=== PATIENT | male | born 1950 | race Caucasian/White ===

== ENCOUNTER → 2018-03-11 11:20 | Outpatient (CLI) | payer MEDICARE, SELFPAY | PROVIDERS: PCP Internal Medicine; Visit Provider Urology | DX: C61 Malignant neoplasm of prostate (principal) | CPT/HCPCS: 36415; 84153 ==

== ENCOUNTER → 2018-04-19 07:31 | Outpatient (CLI) | payer MEDICARE, SELFPAY ==
[2018-04-19 08:51] LABS: Add Manual Diff / Slide Review NO; Eosinophils Percent Auto 6.8 % (2-4); Hematocrit 41.4 % (41-53); Lymphocytes Percent Auto 29.4 % (25-40); Mean Corpuscular HGB Conc 33.9 % (30-36); Mean Corpuscular Hemoglobin 32.4 PG (26-34); Mean Corpuscular Volume 95.5 fL (80-100); Monocytes Percent Auto 11.4 % (3-14); Neutrophils Absolute Auto 2200 /uL (3000-5900); Neutrophils Percent Auto 51.4 % (50-75); Platelet Count 264 X10^3/uL (150-400); Red Blood Cell Count 4.33 X10^6/uL (4.5-5.9); Red Cell Distribution Width 13.7 % (11.6-14.8); White Blood Cell Count 4.3 X10^3/uL (4.5-11.0)
[2018-04-19 09:23] LABS: Alanine Aminotransferase 33 IU/L (21-72); Albumin 4.2 g/dL (3.5-5.0); Albumin Globulin Ratio 1.6 (1.0-2.8); Alkaline Phosphatase 58 U/L (38-126); Aspartate Aminotransferase 29 IU/L (17-59); Bilirubin Total 1.5 mg/dL (0.2-1.3); Blood Urea Nitrogen 18 mg/dL (9-20); Calcium 9.3 mg/dL (8.4-10.2); Carbon Dioxide 29 mmol/L (22-32); Chloride 100 mmol/L (98-107); Cholesterol 165 mg/dL (140-199); Estimated Glomerular Filt Rate > 60.0 mL/min (>60); Globulin 2.7 g/dL (1.7-4.1); Glucose 103 mg/dL (80-110); HDL Cholesterol 56 mg/dL (40-60); HEMOLYSIS < 15 (0-50); LDL Cholesterol Calculated 91 mg/dL (<100); Potassium 4.2 mmol/L (3.4-5.1); Sodium 138 mmol/L (137-145); Total Protein 6.9 g/dL (6.3-8.2); Triglycerides 90 mg/dL (35-150)
[2018-04-19 11:04] LABS: Thyroid Stimulating Hormone 2.66 uIU/mL (0.47-4.68)
== END ==
PROVIDERS: PCP Internal Medicine; Visit Provider Internal Medicine
DX: I10 Essential (primary) hypertension (principal); E78.5 Hyperlipidemia, unspecified; Z87.898 Personal history of other specified conditions; Z00.00 Encounter for general adult medical examination without abnormal findings
CPT/HCPCS: 36415; 80053; 80061; 84443; 85025

== ENCOUNTER → 2018-07-26 07:55 | Outpatient (CLI) | payer MEDICARE, SELFPAY | PROVIDERS: Family Provider Internal Medicine; PCP Internal Medicine; Visit Provider Urology | DX: C61 Malignant neoplasm of prostate (principal) | CPT/HCPCS: 36415; 84153 ==

== ENCOUNTER 2018-10-27 12:52 | Day surgery (SDC) | payer MEDICARE, SELFPAY ==
[2018-10-27 13:55] VITALS: BP 133/88; PULSE 67; RESP 16; TEMP 36.2; O2SAT 97; BMI 22.3
[2018-10-27] MEDS: SODIUM CHLORIDE 0.9% 1,000 ML 200 ML IV (14:03)
--- NOTE | 2018-10-27 14:23 | P.HP_ITS ---
History of Present Illness Date Patient Seen: 10/27/18 Time Patient Seen: 14:20 Chief complaint: 23049 SCREENING COLONOSCOPY Narrative: 67-year-old male who presents for colorectal screening. His last examination was approximately 7 years ago. Patient notes no specific findings at that time. On further history today he denies any new gastrointestinal symptoms. No nausea, vomiting, loss of appetite, unexplained weight loss, abdominal pain, change in bowel habits, diarrhea, constipation, melena, hematochezia, or bright red blood per rectum. Patient History Medical History BPH (benign prostatic hyperplasia) (Acute) Chronic back pain (Acute) Depression (Acute) Elevated PSA (Acute) Fracture of phalanx of left index finger (Acute) Glaucoma (Acute) HTN (hypertension) (Acute) Hearing loss (Acute) Hyperlipidemia (Acute) Prostate cancer (Acute) Spinal stenosis (Acute) Tinnitus (Acute) Spondylolisthesis (Chronic) Chicken pox (Resolved) Measles (Resolved) Surgical History History of colonoscopy (Acute) H/O left inguinal hernia repair (Acute) Family History Father History of carotid endarterectomy Stroke Mother Heart disease Hypertension High cholesterol Sister Age: 60 Borderline personality disorder Grandmother Diabetes mellitus Social History household members: spouse Smoking Status: Never smoker alcohol intake: current Family & Social History Family History Father History of carotid endarterectomy Stroke Mother Heart disease Hypertension High cholesterol Sister Age: 60 Borderline personality disorder Grandmother Diabetes mellitus Social History: household members spouse Tobacco & Substance use: Smoking Status Never smoker alcohol intake current alcohol intake frequency a few times a week Substance Use Type marijuana Meds Home Medications Medication Instructions Recorded Confirmed Type dorzolamide 1 drp OPHTH BID #1 bot 04/27/17 Rx naproxen sodium [Aleve] 220 mg PO BIDCC #0 04/27/17 10/27/18 History timolol maleate [Timoptic] 1 drp OPHTH BID #1 bot 10/11/17 10/27/18 Rx latanoprost 1 drp OPHTH HS #1 bot 03/11/18 10/27/18 Rx atorvastatin 10 mg tablet 10 mg PO HS #90 tab 04/26/18 10/27/18 Rx bupropion HCl SR 150 mg tablet,12 150 mg PO BID #180 tab 04/26/18 10/27/18 Rx hr sustained-release lisinopril 5 mg tablet 2.5 mg PO DAILY #45 tab 04/26/18 10/27/18 Rx nortriptyline 10 mg capsule 10 mg PO HS #90 cap 04/26/18 10/27/18 Rx tamsulosin 0.4 mg capsule 0.8 mg PO QDAY cap 04/26/18 10/27/18 History Allergies Allergy/AdvReac Type Severity Reaction Status Date / Time No Known Drug Allergies Allergy Verified 10/26/18 15:34 Review of Systems Review of Systems All systems reviewed & are unremarkable except as noted in HPI and below Exam Vital Signs (past 8 hours): - 10/27/18 13:55 Temperature 97.1 F L Pulse Rate 67 Respiratory Rate 16 Blood Pressure 133/88 Pulse Oximetry 97 Oxygen Delivery Method Room Air Narrative Exam Narrative: Well-nourished well-developed male in no acute distress. Alert oriented x3. is at the bedside for my entire visit. Sclera nonicteric Regular rate and rhythm Abdomen soft, nondistended, nontender, no masses Extremities show no clubbing or cyanosis. 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 Colonoscopy is once again recommended. Technical details of the procedure were discussed. Risks, benefits, alternatives were explained. Risks including but not limited to sedation, aspiration, bleeding, pain, missed lesion, incomplete examination, need for further radiographic studies, colonic perforation, need for major ab dominal surgery, and all attendant risks of major surgery were discussed in detail. All questions were answered to his satisfaction, and he voiced understanding. Consent was placed on the chart. We will proceed as above.
--- NOTE | 2018-10-27 14:23 | PM.PREOP ---
Pre-operative Note Interval Note History & Physical reviewed/Exam performed by Physician: Yes Changes to H&P: No H&P completed within 30 days and has changed as indicated here:: Patient seen and examined today. History and physical examination documented and placed on the chart. Obviously, there have been no changes in the last 10 min. Proceed with colonoscopy today as planned. ASA Class (for procedural sedation): II
[2018-10-27] MEDS: MIDAZOLAM 5 MG/5 ML VIAL IV (14:36)
[2018-10-27] MEDS: fentaNYL 250 MCG/5 ML INJ IV (14:37)
--- NOTE | 2018-10-27 14:44 | PM.OP.ENDO ---
Operative Date/Time/Diagnoses Date of procedure: 10/27/18 Time of procedure: 14:44 Pre-op diagnosis: Colorectal screening Post-op diagnosis: other (Diverticulosis but otherwise normal colon and rectum) Procedure & Clinicians Study performed: 1. Sedation per surgeon 2. Colonoscopy Same procedure as scheduled: Yes Indications: 67-year-old male who presents for colorectal screening. His last examination was 7 years ago. Colonoscopy is once again recommended. Surgeon: Po Churchill Procedure Notes SCOAP/Timeout: Yes Procedure in detail: After obtaining informed consent, the patient was brought to the GI suite and placed in the left lateral decubitus position on the examination table. After placement of appropriate monitors, the patient was given incremental doses of Versed and Fentanyl until an appropriate level of sedation was achieved. A time out was held per SCOAP protocol. A digital rectal examination was performed and did not reveal any masses or obstructing lesions. The colonoscope was gently passed into the patient's anus and the entire colon navigated to the level of the cecum with minimal difficulty. Terminal ileum was intubated and noted to be grossly normal. Once in the cecum, the scope was withdrawn being sure to go before and beyond all mucosal folds and prominences and get an excellent examination. The findings are noted above. At the level of the rectal vault, the scope was retroflexed and the internal anal canal was examined. The scope was straightened and air aspirated from the colon. The instrument was removed from the patient's body and the procedure was concluded. The patient was allowed to awaken from sedation without difficulty and taken to the post-anesthesia care unit in good condition. Scope withdrawal time: 8:09 min Sedation minutes: 17 Findings: diverticulosis and other findings (Otherwise normal colon and rectum) Specimen(s): none sent Complications: none Recommendations: Colonscopy in 10 years and High fiber diet Plan for aftercare: 1. Discharge home Follow up: as needed Disposition: PACU
[2018-10-27 14:54] VITALS: BP 124/75; PULSE 75; RESP 15; TEMP 36.1; O2SAT 98
== END 2018-10-27 15:07 | disposition home or self-care (01) ==
PROVIDERS: Family Provider Internal Medicine; PCP Internal Medicine; Visit Provider Surgery
PROC: 0DJD8ZZ Inspection of Lower Intestinal Tract, Via Natural or Artificial Opening Endoscopic (ICD-10-PCS; CPT 45378; principal; 2018-10-27 15:00)
DX: Z12.11 Encounter for screening for malignant neoplasm of colon (principal); K57.30 Diverticulosis of large intestine without perforation or abscess without bleeding; I10 Essential (primary) hypertension; E78.5 Hyperlipidemia, unspecified
CPT/HCPCS: G0121; 99152; J2250; J3010

== ENCOUNTER → 2019-01-04 15:16 | Outpatient (CLI) | payer MEDICARE, SELFPAY ==
[2019-01-04 17:49] LABS: Prostate Specific Antigen 8.85 ng/mL (0.10-4.00)
== END ==
PROVIDERS: Family Provider Internal Medicine; PCP Internal Medicine; Visit Provider Urology
DX: C61 Malignant neoplasm of prostate (principal)
CPT/HCPCS: 36415; 84153

== ENCOUNTER → 2019-01-05 11:15 | Outpatient (CLI) | payer MEDICARE, SELFPAY | PROVIDERS: Family Provider Internal Medicine; PCP Internal Medicine; Visit Provider Urology | DX: C61 Malignant neoplasm of prostate (principal) ==

== ENCOUNTER 2019-02-25 03:12 | Emergency (ER) | payer MEDICARE, SELFPAY ==
[2019-02-25 03:20] VITALS: BMI 24.3
[2019-02-25 03:24] VITALS: BP 130/95; PULSE 52; RESP 14; TEMP 36.5; O2SAT 99
--- NOTE | 2019-02-25 03:53 | DI.CT.S_ITS ---
PROCEDURE: CT KIDNEY URETER BLADDER (KUB) INDICATIONS: Painless hematuria TECHNIQUE: Noncontrast 5 mm thick sections acquired from the diaphragms to the symphysis. 5 mm thick coronal and sagittal reformats were then performed. For radiation dose reduction, the following was used: automated exposure control, adjustment of mA and/or kV according to patient size. COMPARISON: None. FINDINGS: Image quality: Excellent. Lung bases: Mild bibasilar atelectasis versus scarring. Heart size is normal. Urinary system: Both kidneys are normal in size. 30 mm diameter right interpolar renal cyst. No kidney stones. No hydronephrosis or perinephric fat stranding. Both ureters appear non-dilated throughout their expected courses. Urinary bladder is decompressed. Other solid organs: Liver is normal in size. Gallbladder is within normal limits. Pancreas is normal in contours. Spleen is normal in size. No adrenal nodules. Prostate is enlarged. Peritoneum and bowel: Unenhanced bowel loops demonstrate normal wall thickness and caliber. Diverticulosis of the descending and sigmoid colon. No free fluid or air. Normal appendix. Nodes and vessels: No retroperitoneal or mesenteric adenopathy by size criteria. Aorta and inferior vena cava are normal in caliber. Abdominal wall: No ventral hernias. Pelvis: No free pelvic fluid. No inguinal hernias or adenopathy. Bones: No suspicious bony lesions. No vertebral body compression fractures. IMPRESSION: 1. No evidence of urinary tract calcification, nor obstruction. 2. Normal appendix. 3. Prostate enlargement. Recommend correlation with PSA values. 4. Concordant with preliminary interpretation. Dictated by: Man Garcia M.D. on 02/25/2019 at 7:08 Approved by: Man Garcia M.D. on 02/25/2019 at 7:12
[2019-02-25] MEDS: SODIUM CHLORIDE 0.9% 1,000 ML 1000 ML IV (03:56)
[2019-02-25 04:12] LABS: Add Manual Diff / Slide Review NO; Basophils Absolute Auto 100 /uL (0-100); Basophils Percent Auto 1.4 % (0-2); Eosinophils Absolute Auto 300 /uL (0-450); Eosinophils Percent Auto 7.3 % (2-4); Hematocrit 42.6 % (41-53); Hemoglobin 14.2 g/dL (13.5-17.5); Lymphocytes Absolute Auto 1200 /uL (1100-4500); Lymphocytes Percent Auto 26.4 % (25-40); Mean Corpuscular HGB Conc 33.4 % (30-36); Mean Corpuscular Hemoglobin 32.4 PG (26-34); Monocytes Absolute Auto 500 /uL (0-900); Monocytes Percent Auto 10.5 % (3-14); Neutrophils Absolute Auto 2500 /uL (1500-7000); Neutrophils Percent Auto 54.4 % (50-75); Platelet Count 250 X10^3/uL (150-400); Red Blood Cell Count 4.39 X10^6/uL (4.5-5.9); Red Cell Distribution Width 13.4 % (11.6-14.8); White Blood Cell Count 4.6 X10^3/uL (4.5-11.0)
[2019-02-25 04:22] LABS: Prothrombin Time 11.4 SECONDS (10.1-12.7)
[2019-02-25 04:25] LABS: PTT Partial Thromboplastin Tim 33 SECONDS (26.4-36.2)
[2019-02-25 04:26] LABS: Blood Urea Nitrogen 22 mg/dL (9-20); Calcium 9.3 mg/dL (8.4-10.2); Carbon Dioxide 29 mmol/L (22-32); Chloride 104 mmol/L (98-107); Estimated Glomerular Filt Rate > 60.0 mL/min (>60); Glucose 103 mg/dL (80-110); HEMOLYSIS < 15 (0-50); Potassium 4.4 mmol/L (3.4-5.1); Sodium 140 mmol/L (137-145)
[2019-02-25 04:57] LABS: Prostate Specific Antigen 5.38 ng/mL (0.10-4.00)
[2019-02-25 05:11] VITALS: BP 128/78; PULSE 60; RESP 18; O2SAT 99
--- NOTE | 2019-02-25 05:44 | ED.MALEGU ---
HPI - Male Genitourinary General Chief complaint: Urogenital-Male Stated complaint: PEEING A LOT OF BLOOD SINCE YESTERDAY AFTERNOON Time Seen by Provider: 02/25/19 03:38 Source: patient Mode of arrival: ambulatory Limitations: no limitations History of Present Illness HPI Narrative: The patient developed hematuria yesterday. He passed a small clot. He has had ongoing hematuria today, again passing a clot. He is still able urinate. He has no abdominal pain. He has no back pain. The patient has no history of kidney stones, he does have a history of prostate cancer initially diagnosed 10 years ago. He is currently under surveillance by his urologist, having multiple PSAs per your checked. He is due for prostate biopsy next month. He is not having fever, chills, or pain with the hematuria. He is not on blood thinners. He has no bleeding disorders. He has had no trauma. Related Data Home Medications Medication Instructions Recorded Confirmed naproxen sodium [Aleve] 220 mg PO BIDCC #0 04/27/17 10/27/18 tamsulosin 0.4 mg capsule 0.8 mg PO QDAY cap 04/26/18 10/27/18 Previous Rx's Medication Instructions Recorded dorzolamide 1 drp OPHTH BID #1 bot 04/27/17 timolol maleate [Timoptic] 1 drp OPHTH BID #1 bot 10/11/17 latanoprost 1 drp OPHTH HS #1 bot 03/11/18 atorvastatin 10 mg tablet 10 mg PO HS #90 tab 04/26/18 bupropion HCl SR 150 mg tablet,12 150 mg PO BID #180 tab 04/26/18 hr sustained-release lisinopril 5 mg tablet 2.5 mg PO DAILY #45 tab 04/26/18 nortriptyline 10 mg capsule 10 mg PO HS #90 cap 04/26/18 Allergies Allergy/AdvReac Type Severity Reaction Status Date / Time No Known Drug Allergies Allergy Verified 10/26/18 15:34 Review of Systems Review of Systems ROS Unobtainable: All systems reviewed & are unremarkable except as noted in HPI and below Constitutional Denies chills and Denies fever(s) Comments: No recent illness. Gastrointestinal Gastrointestinal: Denies abdominal pain, Denies change in bowel habits, Denies diarrhea, Denies nausea and Denies vomiting Genitourinary Reports hematuria, Denies genital lesions, Denies genital pain, Denies dysuria and Denies flank pain Musculoskeletal Denies back pain Integumentary/Breasts Denies rash COUNTS INCLUDE 234 BEDS AT THE [facility] Medical History BPH (benign prostatic hyperplasia) (Acute) Chronic back pain (Acute) Depression (Acute) Elevated PSA (Acute) Fracture of phalanx of left index finger (Acute) Glaucoma (Acute) HTN (hypertension) (Acute) Hearing loss (Acute) Hyperlipidemia (Acute) Prostate cancer (Acute) Spinal stenosis (Acute) Tinnitus (Acute) Spondylolisthesis (Chronic) Chicken pox (Resolved) Measles (Resolved) Surgical History H/O left inguinal hernia repair (Acute) History of colonoscopy (Acute) Family History Father History of carotid endarterectomy Stroke Mother Heart disease Hypertension High cholesterol Sister Age: 60 Borderline personality disorder Grandmother Diabetes mellitus Social History household members: spouse Smoking Status: Never smoker alcohol intake: current Family History Father History of carotid endarterectomy Stroke Mother Heart disease Hypertension High cholesterol Sister Age: 60 Borderline personality disorder Grandmother Diabetes mellitus Social History household members: spouse Smoking Status: Never smoker alcohol intake: current Exam Initial Vital Signs Initial Vital Signs: Vital Signs Temperature 97.7 F 02/25/19 03:24 Pulse Rate 52 L 02/25/19 03:24 Respiratory Rate 14 02/25/19 03:24 Blood Pressure 130/95 H 02/25/19 03:24 Pulse Oximetry 99 02/25/19 03:24 Const General: cooperative and well developed Nutritional Appearance: well nourished Orientation: alert, awake and oriented x3 Resp Effort & Inspection: normal respiratory effort, able to speak in complete sentences, no respiratory distress and no use of accessory muscles Auscultation: clear to auscultation bilaterally, no rales, no rhonchi and no wheezes Cardio Rate: regular rate Rhythm: regular rhythm Heart Sounds: no click, no gallops, no murmurs and no rubs Pulses: normal peripheral pulses GI Inspection: non-distended Palpation: soft, no hepatosplenomegaly, No guarding, No pulsatile mass and No tender Auscultation: normal bowel sounds Other: Normal phallus. Blood at the meatus of the penis. Scrotum/testicles are normal. Back/Spine/Pelvis Back: No CVA tenderness Neuro General: alert, oriented x3, gait normal and no focal motor deficits Speech: speech normal Course Course Narrative: The patient has been asymptomatic with stable vitals since arrival. He was given IV fluids, he is able urinate. No the labs and CT results were discussed with the patient. Best options are to drink plenty of fluids and stay well hydrated, and to contact his urologist on Wednesday to discuss the hematuria and a follow-up plan Orders Ordered: ED Orders 02/25/19 03:45 Urine Microscopic Stat 02/25/19 03:53 CT kidney ureter bladder (KUB) Stat 02/25/19 04:00 Basic Metabolic Panel Stat Complete Blood Count AUTO DIFF Stat Partial Thromboplastin Time Stat Prostate Specific Antigen Stat Prothrombin Time INR Stat Discontinued Medications Sodium Chloride (Normal Saline 0.9%) 1,000 mls @ 1,000 mls/hr IV BOLUS ONE Stop: 02/25/19 04:51 Last Infusion: 02/25/19 04:56 Dose: 0 mls/hr Admin: 02/25/19 03:56 Dose: 1,000 mls/hr Vital Signs - 8 hr 02/25/19 03:24 02/25/19 05:11 Temperature 97.7 F Pulse Rate 52 L 60 Respiratory Rate 14 18 Blood Pressure [Left Arm] 130/95 H 128/78 Pulse Oximetry 99 99 MDM - Male Genitourinary Lab Data Result diagrams: 02/25/19 04:00 02/25/19 04:00 Lab Results 02/25/19 02/25/19 02/25/19 Range/Units 03:45 04:00 04:00 WBC 4.6 (4.5-11.0) X10^3/uL RBC 4.39 L (4.5-5.9) X10^6/uL Hgb 14.2 (13.5-17.5) g/dL Hct 42.6 (41-53) % MCV 97.0 (80-100) fL MCH 32.4 (26-34) PG MCHC 33.4 (30-36) % RDW 13.4 (11.6-14.8) % Plt Count 250 (150-400) X10^3/uL Neut % (Auto) 54.4 (50-75) % Lymph % (Auto) 26.4 (25-40) % Haines % (Auto) 10.5 (3-14) % Eos % (Auto) 7.3 H (2-4) % Baso % (Auto) 1.4 (0-2) % Neut # (Auto) 2500 (7009-9373) /uL Lymph # (Auto) 1200 (8867-1651) /uL Haines # (Auto) 500 (0-900) /uL Eos # (Auto) 300 (0-450) /uL Baso # (Auto) 100 (0-100) /uL PT 11.4 (10.1-12.7) SECONDS INR 1.0 (0.9-1.3) APTT 33 (26.4-36.2) SECONDS Sodium (137-145) mmol/L Potassium (3.4-5.1) mmol/L Chloride (98-107) mmol/L Carbon Dioxide (22-32) mmol/L BUN (9-20) mg/dL Creatinine (0.66-1.25) mg/dL Estimated GFR (>60) mL/min BUN/Creatinine Ratio (6-22) Glucose (80-110) mg/dL Calcium (8.4-10.2) mg/dL Prostate Specific Ag (0.10-4.00) ng/mL Urine RBC >100/hpf (0-5/HPF) Urine WBC None seen (0-5/HPF) Ur Squamous Epith Cells None seen (0-5/HPF) Urine Bacteria None seen (None) Ur Culture Indicated? Cult not indicated 02/25/19 Range/Units 04:00 WBC (4.5-11.0) X10^3/uL RBC (4.5-5.9) X10^6/uL Hgb (13.5-17.5) g/dL Hct (41-53) % MCV (80-100) fL MCH (26-34) PG MCHC (30-36) % RDW (11.6-14.8) % Plt Count (150-400) X10^3/uL Neut % (Auto) (50-75) % Lymph % (Auto) (25-40) % Haines % (Auto) (3-14) % Eos % (Auto) (2-4) % Baso % (Auto) (0-2) % Neut # (Auto) (5633-2358) /uL Lymph # (Auto) (8468-1405) /uL Haines # (Auto) (0-900) /uL Eos # (Auto) (0-450) /uL Baso # (Auto) (0-100) /uL PT (10.1-12.7) SECONDS INR (0.9-1.3) APTT (26.4-36.2) SECONDS Sodium 140 (137-145) mmol/L Potassium 4.4 (3.4-5.1) mmol/L Chloride 104 (98-107) mmol/L Carbon Dioxide 29 (22-32) mmol/L BUN 22 H (9-20) mg/dL Creatinine 1.00 (0.66-1.25) mg/dL Estimated GFR > 60.0 (>60) mL/min BUN/Creatinine Ratio 22.0 (6-22) Glucose 103 (80-110) mg/dL Calcium 9.3 (8.4-10.2) mg/dL Prostate Specific Ag 5.38 H D (0.10-4.00) ng/mL Urine RBC (0-5/HPF) Urine WBC (0-5/HPF) Ur Squamous Epith Cells (0-5/HPF) Urine Bacteria (None) Ur Culture Indicated? Imaging Data CT scan - abdomen: Radiologist's impression: Right renal cyst. No urolithiasis. Prostate hypertrophy. Discharge Plan Departure Patient Disposition: Home Clinical Impression: Hypertrophy of prostate, Cyst of right kidney Hematuria Qualifiers: Hematuria type: gross Qualified Code(s): R31.0 - Gross hematuria Activity Restrictions/Additional Instructions: Drink plenty of fluids, stay well hydrated. Tried to be sure and urinate frequently. Return to this ER a local ER if you have problems passing urine. Contact your urologist Wednesday to arrange follow-up. Prescriptions: No Action naproxen sodium [Aleve] 220 MG tablet 220 mg PO BIDCC Qty: 0 RF: 0 dorzolamide 2 % drops 1 drp OPHTH BID Qty: 1 RF: 3 timolol maleate [Timoptic] 0.25 % drops 1 drp OPHTH BID Qty: 1 RF: 3 latanoprost 0.005 % drops 1 drp OPHTH HS Qty: 1 RF: 3 tamsulosin [Flomax] 0.4 mg capsule 0.8 mg PO QDAY RF: 0 lisinopril 5 mg tablet 2.5 mg PO DAILY Qty: 45 RF: 3 atorvastatin [Lipitor] 10 mg tablet 10 mg PO HS Qty: 90 RF: 3 bupropion HCl [Wellbutrin SR] 150 mg tablet extended release 12 hr 150 mg PO BID Qty: 180 RF: 3 nortriptyline 10 mg capsule 10 mg PO HS Qty: 90 RF: 3 Referrals: Abigail Greenberg ARNP [Primary Care Provider] -
[2019-02-25 06:04] LABS: Bacteria Urine None Seen; WBC Urine None Seen (0-5/HPF)
[2019-02-25 06:14] LABS: Culture Indicated Urine Cult Not Indicated; RBC Urine >100/HPF (0-5/HPF); Squamous Epithelial Cell Urine None Seen (0-5/HPF)
== END 2019-02-25 06:25 | disposition home or self-care (01) ==
PROVIDERS: Emergency Provider Emergency Medicine; PCP Internal Medicine
DX: N40.0 Benign prostatic hyperplasia without lower urinary tract symptoms (principal); N28.1 Cyst of kidney, acquired; R31.0 Gross hematuria
CPT/HCPCS: 36591; 74176; 80048; 81015; 84153; 85025; 85610; 85730; 96360; 99283; 99284

== ENCOUNTER → 2019-03-01 12:30 | Outpatient (CLI) | payer MEDICARE, SELFPAY ==
--- NOTE | 2019-03-01 | DI.CT.S_ITS ---
PROCEDURE: CT ABDOMEN PELVIS WO/W CON INDICATIONS: GROSS HEMATURIA TECHNIQUE: After the administration of intravenous contrast, 5 mm thick images acquired from the diaphragm to the symphysis pubis after a 10-minute delay. 2 mm thick coronal and sagittal reformats were then performed of the kidneys and ureters. For radiation dose reduction, the following was used: automated exposure control, adjustment of mA and/or kV according to patient size. COMPARISON: [facility], CT, CT KIDNEY URETER BLADDER (KUB), 02/25/2019, 3:59. FINDINGS: Image quality: Excellent. Lung bases: 5 mm subpleural left lower lobe ovoid lung nodule. Heart size is normal. Urinary system: No perinephric fat stranding. There is normal bilateral renal enhancement. Multiple small cortical and a large right upper pole corticomedullary cyst measuring 3.4 cm present. No filling defects within the collecting systems. Renal calyces appear normal in morphology when filled with contrast. Opacified portions of both ureters demonstrate normal caliber. Bladder wall thickness is normal. Other solid organs: Liver is normal in size and enhancement. Gallbladder appears normal. Biliary system is non dilated. Pancreas enhances normally. Spleen is normal in size and enhancement. No adrenal nodules. Peritoneum and bowel: Bowel loops demonstrate normal wall thickness and caliber. No free fluid or air. Sigmoid diverticula are present. Nodes and vessels: No retroperitoneal or mesenteric adenopathy by size criteria. Aorta and inferior vena cava are normal in size. Abdominal wall: No ventral hernias. Pelvis: No pathologic free pelvic fluid. No inguinal hernias or adenopathy. The prostate gland is significantly enlarged and measures 6.6 x 5.0 x 5.7 cm. Seminal vesicles appear normal. No pelvic adenopathy. The urinary bladder wall is minimally thickened, likely secondary to partial distention. Bones: No suspicious bony lesions. No vertebral body compression fractures. IMPRESSION: 1. Significant prostatomegaly. 2. No evidence of filling defect or mass within the urinary collecting system. 3. Bilateral renal cysts. No solid renal mass. Dictated by: Christa Tabares M.D. on 03/01/2019 at 17:58 Approved by: Christa Tabares M.D. on 03/01/2019 at 18:06
== END ==
PROVIDERS: PCP Internal Medicine; Visit Provider Urology
DX: R31.0 Gross hematuria (principal); N40.0 Benign prostatic hyperplasia without lower urinary tract symptoms; N28.1 Cyst of kidney, acquired
CPT/HCPCS: 74177; Q9967

== ENCOUNTER 2019-07-17 09:55 | Outpatient (CLI) | payer MEDICARE, SELFPAY ==
[2019-07-17 12:44] LABS: Prostate Specific Antigen 5.55 ng/mL (0.10-4.00)
== END 2019-09-01 11:53 | disposition home or self-care (01) ==
LOC: LAB 09:58
PROVIDERS: Family Provider Internal Medicine; PCP Internal Medicine; Visit Provider Urology
DX: C61 Malignant neoplasm of prostate (principal)
CPT/HCPCS: 36415; 84153

== ENCOUNTER 2019-08-02 08:15 | Outpatient (RCR) | payer MEDICARE, SELFPAY ==
--- NOTE | 2019-07-26 16:20 | PT.OIE ---
Current Diagnoses Cervicalgia (07/26/19) Past Medical History (Last Reviewed 02/25/19 @ 06:08 by Darryn Tariq MD) BPH (benign prostatic hyperplasia) (Acute) Chicken pox (Resolved) Chronic back pain (Acute) Depression (Acute) Elevated PSA (Acute) Fracture of phalanx of left index finger (Acute) Glaucoma (Acute) Hearing loss (Acute) HTN (hypertension) (Acute) Hyperlipidemia (Acute) Measles (Resolved) Prostate cancer (Acute) Spinal stenosis (Acute) Spondylolisthesis (Chronic) Tinnitus (Acute) Past Surgical History (Last Reviewed 02/25/19 @ 06:08 by Darryn Tariq MD) H/O left inguinal hernia repair (Acute) History of colonoscopy (Acute) Visit Care Team Role Provider Type TRACY Cruz Attending Provider Advanced Professor Criminal Justice Family Provider Primary Care Provider Specialty: Family Practice Address: [address] [place] [address], [facility] Email: [email or web address] Physical Therapy Initial Evaluation PT-OP-A Visit Information Start: 07/26/19 13:44 Freq: Status: Active Protocol: Document 07/26/19 14:30 AMB (Rec: 07/26/19 16:10 AMB [email or web address]) Out-Patient Physical Therapy Visit Information Visit Information Visit Type Initial Evaluation Visit Start Time 14:30 Visit Stop Time 15:15 Total Visit Minutes 45 Visit Number 1 PT-OP-B Current Condition Start: 07/26/19 13:44 Freq: Status: Active Protocol: Document 07/26/19 14:30 AMB (Rec: 07/26/19 16:10 AMB [email or web address]) Current Condition History of Current Condition Onset Date 1 month ago Current Complaints neck pain History of Current Condition Pt reports increased neck pain after a 9 hour flight to [place]. He does have a history of cervical herniated disc per his report in 2007. Currently sleeping and turning the head increase his pain. Which is currently between 2/ 10 and 4/10. Denies radiating pain into the arms, but does have right sided neck and upper trap pain. Prior Functional Status Baseline Function- ADL's Independent Baseline Function- Mobility Independent Current Functional Impairments (Reported) Functional Limitations- ADL's difficulty sleeping and driving due to pain Personal Factors Other Personal Factors That May Effect Back pain with Therapy/Recovery spondylolisthesis (pt unsure what level or degree) PT-OP-C Subjective Start: 07/26/19 13:44 Freq: Status: Active Protocol: Document 07/26/19 14:30 AMB (Rec: 07/26/19 16:10 AMB [email or web address]) Patient Questionnaires Neck Disability Index NDI Score 7/50=14% Neck Disability Index Impairment 1 to 19% Impaired (Score 1-9) PT-OP-J Posture/Palpation/Skin Start: 07/26/19 13:44 Freq: Status: Active Protocol: Document 07/26/19 14:30 AMB (Rec: 07/26/19 16:10 AMB [email or web address]) Posture Evaluation Comments Posture Comments Medial border of scapula wings mildly bilaterally. Mild forward head. Palpation Assessment Location One Palpation Location cervical spine and upper thoracic Palpation Findings Muscle Guarding,Tenderness Palpation Details Tightness in R levator scapula . No pain with PAs through c- spine, but stiffness present. PT-OP-K Range of Motion Start: 07/26/19 13:44 Freq: Status: Active Protocol: Document 07/26/19 14:30 AMB (Rec: 07/26/19 16:10 AMB [email or web address]) Cervical Spine Range of Motion Cervical Spine Active Degrees Testing Position Sitting Flexion 50 Extension 45 Rotation Left 72 Rotation Right 60 Lateral Flexion Left 25 Lateral Flexion Right 38 ROM Limitations Pain Comments left sidebending, right rotation, and extension PT-OP-L Special Tests Start: 07/26/19 13:44 Freq: Status: Active Protocol: Document 07/26/19 14:30 AMB (Rec: 07/26/19 16:10 AMB [email or web address]) Special Tests Cervical Spine Special Tests Alar Ligament Test Results negative Traction Test Results positive for pain relief Spurling's Test Test Results negative PT-OP-Q Treatments Start: 07/26/19 13:44 Freq: Status: Active Protocol: Document 07/26/19 14:30 AMB (Rec: 07/26/19 16:10 AMB [email or web address]) Manual Therapy Treatment Soft Tissue Mobilization 1 Body Location R UT, levator scap, sub occipitals Mobilization Type Myofascial Release,Sustained Pressure Intensity/Depth Moderate Body Position Hooklying Manual Traction Cervical Body Position Hooklying Reps/Duration 5 min PT-OP-R Modalities Start: 07/26/19 13:44 Freq: Status: Active Protocol: Document 07/26/19 14:30 AMB (Rec: 07/26/19 16:10 AMB [email or web address]) Electric Stimulation Electric Stimulation Interferential Current (IFC) Body Location cervical/upper tspine Duration (Minutes) 10 PT-OP-T Assessment and Plan Start: 07/26/19 13:44 Freq: Status: Active Protocol: Document 07/26/19 14:30 AMB (Rec: 07/26/19 16:10 AMB [email or web address]) Physical Therapy Assessment Rehab Potential Rehabilitation Potential Good Evaluation Complexity Number of Personal Factors/Comorbidities 1-2 Number of Body Systems Impaired 4 or More Clinical Presentation at Evaluation Stable Impairments Impairments Functional Activities,Pain, Posture,ROM Goals Two Impairment sleeping Short Term Goal (STG) Kayode will wake from sleeping in the morning with 2/10 neck pain or less. STG Duration 4 weeks One Impairment ROM Short Term Goal (STG) Kayode will increase his cervical rotation AROM to bilaterally 75 degrees. STG Duration 4 weeks Wearing Apparel Shaker Goal (LTG) Kayode will improve his cervical extension to 55 degrees without pain. LTG Duration 8 weeks Assessment Summary Assessment Pt reports increased neck pain s/p long flight with continued pain especially with sleeping and turning the head . He does have a history of herniated disc, but currently denies pain or numbness tingling radiating down into his arms. He does show postural changes described above and have pain with extension, right rotation and left sidebending. He will benefit from PT to improve the above impairments and improve his ability to sleep without neck pain. Physical Therapy Plan Frequency and Duration Frequency of Treatment 2x/Week Duration of Treatment 8 weeks Plan of Care Start Date 07/26/19 Plan of Care End Date 09/20/19 Therapeutic Interventions Therapeutic Interventions Home Exercise Program,Joint Mobilizations,Manual Therapy, Neuromuscular Re-education, Soft Tissue Mobilization, Therapeutic Activities, Therapeutic Exercises Modalities Electric Stimulation,Hot Packs ,Traction- Mechanical, Ultrasound Next Visit Focus/Plan Next Note Type Treatment Note Next Visit Plan Instruct pt in self stretching and chin tuck HEP, can try e- stim, traction, and manual therapy to improve ROM.
--- NOTE | 2019-07-26 16:25 | PT.OPPOC ---
Current Diagnoses Cervicalgia (07/26/19) Visit Care Team Role Provider Type TRACY Cruz Attending Provider Advanced Cardiothoracic Anesthesia Technician Family Provider Primary Care Provider Specialty: Family Practice Address: [address] [place] [address], [facility], [place], [address] Email: [email or web address] Plan Of Care PT-OP-T Assessment and Plan Start: 07/26/19 13:44 Freq: Status: Active Protocol: Document 07/26/19 14:30 AMB (Rec: 07/26/19 16:10 AMB [email or web address]) Physical Therapy Assessment Rehab Potential Rehabilitation Potential Good Evaluation Complexity Number of Personal Factors/Comorbidities 1-2 Number of Body Systems Impaired 4 or More Clinical Presentation at Evaluation Stable Impairments Impairments Functional Activities,Pain, Posture,ROM Goals Two Impairment sleeping Short Term Goal (STG) Kayode will wake from sleeping in the morning with 2/10 neck pain or less. STG Duration 4 weeks One Impairment ROM Short Term Goal (STG) Kayode will increase his cervical rotation AROM to bilaterally 75 degrees. STG Duration 4 weeks Manager Occupational Goal (LTG) Kayode will improve his cervical extension to 55 degrees without pain. LTG Duration 8 weeks Assessment Summary Assessment Pt reports increased neck pain s/p long flight with continued pain especially with sleeping and turning the head . He does have a history of herniated disc, but currently denies pain or numbness tingling radiating down into his arms. He does show postural changes described above and have pain with extension, right rotation and left sidebending. He will benefit from PT to improve the above impairments and improve his ability to sleep without neck pain. Physical Therapy Plan Frequency and Duration Frequency of Treatment 2x/Week Duration of Treatment 8 weeks Plan of Care Start Date 07/26/19 Plan of Care End Date 09/20/19 Therapeutic Interventions Therapeutic Interventions Home Exercise Program,Joint Mobilizations,Manual Therapy, Neuromuscular Re-education, Soft Tissue Mobilization, Therapeutic Activities, Therapeutic Exercises Modalities Electric Stimulation,Hot Packs ,Traction- Mechanical, Ultrasound Next Visit Focus/Plan Next Note Type Treatment Note Next Visit Plan Instruct pt in self stretching and chin tuck HEP, can try e- stim, traction, and manual therapy to improve ROM. Plan of Care Dates Plan of Care Start Date 07/26/19 Plan of Care End Date 09/20/19
--- NOTE | 2019-07-27 16:03 | PT.OTN ---
Current Diagnoses Cervicalgia (07/27/19) Physical Therapy Treatment Note PT-OP-A Visit Information Start: 07/26/19 13:44 Freq: Status: Active Protocol: Document 07/27/19 13:45 AMB (Rec: 07/27/19 13:52 AMB [email or web address]) Out-Patient Physical Therapy Visit Information Visit Information Visit Type Treatment Note Visit Start Time 13:45 Visit Stop Time 14:30 Total Visit Minutes 45 Visit Number 2 PT-OP-B Current Condition Start: 07/26/19 13:44 Freq: Status: Active Protocol: Document 07/26/19 14:30 AMB (Rec: 07/26/19 16:10 AMB [email or web address]) Current Condition History of Current Condition Onset Date 1 month ago Current Complaints neck pain History of Current Condition Pt reports increased neck pain after a 9 hour flight to [place]. He does have a history of cervical herniated disc per his report in 2007. Currently sleeping and turning the head increase his pain. Which is currently between 2/ 10 and 4/10. Denies radiating pain into the arms, but does have right sided neck and upper trap pain. Prior Functional Status Baseline Function- ADL's Independent Baseline Function- Mobility Independent Current Functional Impairments (Reported) Functional Limitations- ADL's difficulty sleeping and driving due to pain Personal Factors Other Personal Factors That May Effect Back pain with Therapy/Recovery spondylolisthesis (pt unsure what level or degree) PT-OP-C Subjective Start: 07/26/19 13:44 Freq: Status: Active Protocol: Document 07/27/19 13:45 AMB (Rec: 07/27/19 13:52 AMB [id number]) OP-PT Subjective Patient Comments Patient Comments Pt reports he woke up pretty stiff, mostly on the left today. PT-OP-J Posture/Palpation/Skin Start: 07/26/19 13:44 Freq: Status: Active Protocol: Document 07/26/19 14:30 AMB (Rec: 07/26/19 16:10 AMB [email or web address]) Posture Evaluation Comments Posture Comments Medial border of scapula wings mildly bilaterally. Mild forward head. Palpation Assessment Location One Palpation Location cervical spine and upper thoracic Palpation Findings Muscle Guarding,Tenderness Palpation Details Tightness in R levator scapula . No pain with PAs through c- spine, but stiffness present. PT-OP-K Range of Motion Start: 07/26/19 13:44 Freq: Status: Active Protocol: Document 07/26/19 14:30 AMB (Rec: 07/26/19 16:10 AMB [email or web address]) Cervical Spine Range of Motion Cervical Spine Active Degrees Testing Position Sitting Flexion 50 Extension 45 Rotation Left 72 Rotation Right 60 Lateral Flexion Left 25 Lateral Flexion Right 38 ROM Limitations Pain Comments left sidebending, right rotation, and extension PT-OP-L Special Tests Start: 07/26/19 13:44 Freq: Status: Active Protocol: Document 07/26/19 14:30 AMB (Rec: 07/26/19 16:10 AMB [email or web address]) Special Tests Cervical Spine Special Tests Alar Ligament Test Results negative Traction Test Results positive for pain relief Spurling's Test Test Results negative PT-OP-Q Treatments Start: 07/26/19 13:44 Freq: Status: Active Protocol: Document 07/27/19 13:45 AMB (Rec: 07/27/19 15:58 AMB [email or web address]) Therapeutic Exercises Supine Exercises 1 Supine Exercise Name chin tuck Sitting Exercises 2 Sitting Exercise Name levator scap stretch Reps/Minutes 30x2 1 Sitting Exercise Name isometrics- cervical rotation Reps/Minutes 5x5 Manual Therapy Treatment Soft Tissue Mobilization 1 Body Location R UT, levator scap, sub occipitals Mobilization Type Myofascial Release,Sustained Pressure Intensity/Depth Moderate Body Position Hooklying Joint Mobilizations 1 Joint C3-7 Direction UPA Grade III Body Position Hooklying Manual Traction Cervical Body Position Hooklying Reps/Duration 5 min PT-OP-R Modalities Start: 07/26/19 13:44 Freq: Status: Active Protocol: Document 07/27/19 13:45 AMB (Rec: 07/27/19 15:59 AMB [email or web address]) Electric Stimulation Electric Stimulation Interferential Current (IFC) Body Location cervical/upper tspine Duration (Minutes) 10 Combined With Heat/Cold Hot Pack PT-OP-T Assessment and Plan Start: 07/26/19 13:44 Freq: Status: Active Protocol: Document 07/27/19 13:45 AMB (Rec: 07/27/19 15:58 AMB [email or web address]) Physical Therapy Assessment Assessment Summary Assessment Pt with more left sided neck pain at C4-C5 today. Reports intermittent sharp pain. Not reproduced while he was in PT. Physical Therapy Plan Next Visit Focus/Plan Next Note Type Treatment Note Next Visit Plan Reassess HEP, can trial traction
--- NOTE | 2019-07-31 08:24 | PT.OTN ---
Current Diagnoses Cervicalgia (07/31/19) Physical Therapy Treatment Note PT-OP-A Visit Information Start: 07/26/19 13:44 Freq: Status: Active Protocol: Document 07/31/19 07:30 AMB (Rec: 07/31/19 08:13 AMB [id number]) Out-Patient Physical Therapy Visit Information Visit Information Visit Type Treatment Note Visit Start Time 07:30 Visit Stop Time 08:15 Total Visit Minutes 45 Visit Number 3 PT-OP-B Current Condition Start: 07/26/19 13:44 Freq: Status: Active Protocol: Document 07/26/19 14:30 AMB (Rec: 07/26/19 16:10 AMB [email or web address]) Current Condition History of Current Condition Onset Date 1 month ago Current Complaints neck pain History of Current Condition Pt reports increased neck pain after a 9 hour flight to [place]. He does have a history of cervical herniated disc per his report in 2007. Currently sleeping and turning the head increase his pain. Which is currently between 2/ 10 and 4/10. Denies radiating pain into the arms, but does have right sided neck and upper trap pain. Prior Functional Status Baseline Function- ADL's Independent Baseline Function- Mobility Independent Current Functional Impairments (Reported) Functional Limitations- ADL's difficulty sleeping and driving due to pain Personal Factors Other Personal Factors That May Effect Back pain with Therapy/Recovery spondylolisthesis (pt unsure what level or degree) PT-OP-C Subjective Start: 07/26/19 13:44 Freq: Status: Active Protocol: Document 07/31/19 07:30 AMB (Rec: 07/31/19 08:13 AMB [id number]) OP-PT Subjective Patient Comments Patient Comments Mostly just right sided stiffness, no sharp pains Patient Reported Progress Improving PT-OP-J Posture/Palpation/Skin Start: 07/26/19 13:44 Freq: Status: Active Protocol: Document 07/26/19 14:30 AMB (Rec: 07/26/19 16:10 AMB [email or web address]) Posture Evaluation Comments Posture Comments Medial border of scapula wings mildly bilaterally. Mild forward head. Palpation Assessment Location One Palpation Location cervical spine and upper thoracic Palpation Findings Muscle Guarding,Tenderness Palpation Details Tightness in R levator scapula . No pain with PAs through c- spine, but stiffness present. PT-OP-K Range of Motion Start: 07/26/19 13:44 Freq: Status: Active Protocol: Document 07/26/19 14:30 AMB (Rec: 07/26/19 16:10 AMB [email or web address]) Cervical Spine Range of Motion Cervical Spine Active Degrees Testing Position Sitting Flexion 50 Extension 45 Rotation Left 72 Rotation Right 60 Lateral Flexion Left 25 Lateral Flexion Right 38 ROM Limitations Pain Comments left sidebending, right rotation, and extension PT-OP-L Special Tests Start: 07/26/19 13:44 Freq: Status: Active Protocol: Document 07/26/19 14:30 AMB (Rec: 07/26/19 16:10 AMB [email or web address]) Special Tests Cervical Spine Special Tests Alar Ligament Test Results negative Traction Test Results positive for pain relief Spurling's Test Test Results negative PT-OP-Q Treatments Start: 07/26/19 13:44 Freq: Status: Active Protocol: Document 07/31/19 07:30 AMB (Rec: 07/31/19 08:15 AMB [id number]) Cardio Equipment Upper Body Ergometer (UBE) Duration (Minutes) 6 Other fwd/bckwd Therapeutic Exercises Supine Exercises 1 Supine Exercise Name chin tuck Reps/Minutes 5x10 Sitting Exercises 2 Sitting Exercise Name levator scap stretch Reps/Minutes 30x2 1 Sitting Exercise Name isometrics- cervical rotation Reps/Minutes 5x5 Standing Exercises 1 Standing Exercise Name pec stretch Reps/Minutes 30x2 Comments doorway Manual Therapy Treatment Soft Tissue Mobilization 1 Body Location R UT, levator scap, sub occipitals Mobilization Type Myofascial Release,Sustained Pressure Intensity/Depth Moderate Body Position Hooklying Joint Mobilizations 1 Joint C3-7 Direction UPA Grade III Body Position Hooklying Manual Traction Cervical Body Position Hooklying Reps/Duration 5 min Other Other Manual Treatments instruction in theracane and self myofascial release PT-OP-R Modalities Start: 07/26/19 13:44 Freq: Status: Active Protocol: Document 07/31/19 07:30 AMB (Rec: 07/31/19 08:15 AMB [id number]) Electric Stimulation Electric Stimulation Interferential Current (IFC) Body Location R neck Duration (Minutes) 15 Patient Position Hooklying Combined With Heat/Cold Hot Pack PT-OP-T Assessment and Plan Start: 07/26/19 13:44 Freq: Status: Active Protocol: Document 07/31/19 07:30 AMB (Rec: 07/31/19 08:13 [facility] [id number]) Physical Therapy Assessment Assessment Summary Assessment Pt with more of his normal neck pain today. R sided upper trap/levator scap. Instructed in postural awareness, theracane, stretching. Physical Therapy Plan Next Visit Focus/Plan Next Note Type Treatment Note Next Visit Plan Continue manual therapy and stretching for pain relief as necessary.
--- NOTE | 2019-08-02 09:02 | PT.OTN ---
Current Diagnoses Cervicalgia (08/02/19) Physical Therapy Treatment Note PT-OP-A Visit Information Start: 07/26/19 13:44 Freq: Status: Active Protocol: Document 08/02/19 08:15 LJ (Rec: 08/02/19 09:02 LJ [email or web address]) Out-Patient Physical Therapy Visit Information Visit Information Visit Type Treatment Note Visit Start Time 08:15 Visit Stop Time 09:00 Total Visit Minutes 45 Visit Number 4 Number of MUD MILL TENDER Visits 1 PT-OP-B Current Condition Start: 07/26/19 13:44 Freq: Status: Active Protocol: Document 07/26/19 14:30 AMB (Rec: 07/26/19 16:10 AMB [email or web address]) Current Condition History of Current Condition Onset Date 1 month ago Current Complaints neck pain History of Current Condition Pt reports increased neck pain after a 9 hour flight to [place]. He does have a history of cervical herniated disc per his report in 2007. Currently sleeping and turning the head increase his pain. Which is currently between 2/ 10 and 4/10. Denies radiating pain into the arms, but does have right sided neck and upper trap pain. Prior Functional Status Baseline Function- ADL's Independent Baseline Function- Mobility Independent Current Functional Impairments (Reported) Functional Limitations- ADL's difficulty sleeping and driving due to pain Personal Factors Other Personal Factors That May Effect Back pain with Therapy/Recovery spondylolisthesis (pt unsure what level or degree) PT-OP-C Subjective Start: 07/26/19 13:44 Freq: Status: Active Protocol: Document 08/02/19 08:15 LJ (Rec: 08/02/19 09:02 LJ [email or web address]) OP-PT Subjective Patient Comments Patient Comments Pt reports he is cured. He has no more pain or stiffness. Patient Reported Progress Improving PT-OP-J Posture/Palpation/Skin Start: 07/26/19 13:44 Freq: Status: Active Protocol: Document 07/26/19 14:30 AMB (Rec: 07/26/19 16:10 AMB [email or web address]) Posture Evaluation Comments Posture Comments Medial border of scapula wings mildly bilaterally. Mild forward head. Palpation Assessment Location One Palpation Location cervical spine and upper thoracic Palpation Findings Muscle Guarding,Tenderness Palpation Details Tightness in R levator scapula . No pain with PAs through c- spine, but stiffness present. PT-OP-K Range of Motion Start: 07/26/19 13:44 Freq: Status: Active Protocol: Document 07/26/19 14:30 AMB (Rec: 07/26/19 16:10 AMB [email or web address]) Cervical Spine Range of Motion Cervical Spine Active Degrees Testing Position Sitting Flexion 50 Extension 45 Rotation Left 72 Rotation Right 60 Lateral Flexion Left 25 Lateral Flexion Right 38 ROM Limitations Pain Comments left sidebending, right rotation, and extension PT-OP-L Special Tests Start: 07/26/19 13:44 Freq: Status: Active Protocol: Document 07/26/19 14:30 AMB (Rec: 07/26/19 16:10 AMB [email or web address]) Special Tests Cervical Spine Special Tests Alar Ligament Test Results negative Traction Test Results positive for pain relief Spurling's Test Test Results negative PT-OP-Q Treatments Start: 07/26/19 13:44 Freq: Status: Active Protocol: Document 08/02/19 08:15 LJ (Rec: 08/02/19 09:02 LJ [email or web address]) Therapeutic Exercises Prone Exercises I, T, Y Reps/Minutes 10 each direction Sitting Exercises 2 Sitting Exercise Name levator scap stretch Reps/Minutes 30x2 1 Sitting Exercise Name isometrics- cervical rotation Reps/Minutes 5x5 Standing Exercises wall angels Reps/Minutes 10x 1 Standing Exercise Name pec stretch Reps/Minutes 30x2 Comments doorway Manual Therapy Treatment Soft Tissue Mobilization 1 Body Location R UT, levator scap, sub occipitals Mobilization Type Myofascial Release,Sustained Pressure Intensity/Depth Moderate Body Position Hooklying Manual Traction Cervical Body Position Hooklying Reps/Duration 2 min PT-OP-R Modalities Start: 07/26/19 13:44 Freq: Status: Active Protocol: Document 08/02/19 08:15 LJ (Rec: 08/02/19 09:02 LJ [email or web address]) Electric Stimulation Electric Stimulation Interferential Current (IFC) Body Location R neck Duration (Minutes) 15 Patient Position Hooklying Combined With Heat/Cold Hot Pack PT-OP-T Assessment and Plan Start: 07/26/19 13:44 Freq: Status: Active Protocol: Document 08/02/19 08:15 LJ (Rec: 08/02/19 09:02 LJ [email or web address]) Physical Therapy Assessment Assessment Summary Assessment Pt reported he has no pain or stiffness anymore. He was given several exercises to strengthen back to maintain ROM, strength and flexibility . Physical Therapy Plan Next Visit Focus/Plan Next Note Type Treatment Note Next Visit Plan Pt to be discharged.
--- NOTE | 2019-08-07 08:02 | PT.OPDS ---
Current Diagnoses Cervicalgia (08/02/19) Visit Care Team Role Provider Type TRACY Cruz Attending Provider Advanced Piano Technician Family Provider Primary Care Provider Specialty: Family Practice Address: [address] [place] [address], [facility], [place], [place], [facility] Email: [email or web address] Visit Number Visit Number 4 Discharge Summary PT-OP-B Current Condition Start: 07/26/19 13:44 Freq: Status: Active Protocol: Document 07/26/19 14:30 AMB (Rec: 07/26/19 16:10 AMB [email or web address]) Current Condition History of Current Condition Onset Date 1 month ago Current Complaints neck pain History of Current Condition Pt reports increased neck pain after a 9 hour flight to [place]. He does have a history of cervical herniated disc per his report in 2007. Currently sleeping and turning the head increase his pain. Which is currently between 2/ 10 and 4/10. Denies radiating pain into the arms, but does have right sided neck and upper trap pain. Prior Functional Status Baseline Function- ADL's Independent Baseline Function- Mobility Independent Current Functional Impairments (Reported) Functional Limitations- ADL's difficulty sleeping and driving due to pain Personal Factors Other Personal Factors That May Effect Back pain with Therapy/Recovery spondylolisthesis (pt unsure what level or degree) PT-OP-C Subjective Start: 07/26/19 13:44 Freq: Status: Active Protocol: Document 08/02/19 08:15 LJ (Rec: 08/02/19 09:02 LJ [email or web address]) OP-PT Subjective Patient Comments Patient Comments Pt reports he is cured. He has no more pain or stiffness. Patient Reported Progress Improving PT-OP-J Posture/Palpation/Skin Start: 07/26/19 13:44 Freq: Status: Active Protocol: Document 07/26/19 14:30 AMB (Rec: 07/26/19 16:10 AMB [email or web address]) Posture Evaluation Comments Posture Comments Medial border of scapula wings mildly bilaterally. Mild forward head. Palpation Assessment Location One Palpation Location cervical spine and upper thoracic Palpation Findings Muscle Guarding,Tenderness Palpation Details Tightness in R levator scapula . No pain with PAs through c- spine, but stiffness present. PT-OP-K Range of Motion Start: 07/26/19 13:44 Freq: Status: Active Protocol: Document 07/26/19 14:30 AMB (Rec: 07/26/19 16:10 AMB [email or web address]) Cervical Spine Range of Motion Cervical Spine Active Degrees Testing Position Sitting Flexion 50 Extension 45 Rotation Left 72 Rotation Right 60 Lateral Flexion Left 25 Lateral Flexion Right 38 ROM Limitations Pain Comments left sidebending, right rotation, and extension PT-OP-L Special Tests Start: 07/26/19 13:44 Freq: Status: Active Protocol: Document 07/26/19 14:30 AMB (Rec: 07/26/19 16:10 AMB [email or web address]) Special Tests Cervical Spine Special Tests Alar Ligament Test Results negative Traction Test Results positive for pain relief Spurling's Test Test Results negative PT-OP-T Assessment and Plan Start: 07/26/19 13:44 Freq: Status: Active Protocol: Document 08/07/19 08:00 AMB (Rec: 08/07/19 08:02 AMB [email or web address]) Physical Therapy Assessment Goals Two Impairment sleeping Short Term Goal (STG) Kayode will wake from sleeping in the morning with 2/10 neck pain or less. STG Duration MET One Impairment ROM Short Term Goal (STG) Kayode will increase his cervical rotation AROM to bilaterally 75 degrees. STG Duration 4 weeks Halfway Goal (LTG) Kayode will improve his cervical extension to 55 degrees without pain. LTG Duration 8 weeks Assessment Summary Assessment Pt reports decreased pain and stiffness over the past week. He is ready for discharge at this time. He has exercises and has been instructed in self release with tennis ball/ theracane. Physical Therapy Plan Discharge Physical Therapy Discharge Reasons Goals Met
== END 2020-05-07 11:29 ==
LOC: PHYS 08:15
PROVIDERS: Family Provider Internal Medicine; PCP Internal Medicine; Visit Provider Internal Medicine
DX: M54.2 Cervicalgia (principal)
CPT/HCPCS: 97014; 97032; 97110; 97140; 97161; G0283

== ENCOUNTER → 2019-09-13 11:06 | Outpatient (CLI) | payer MEDICARE, SELFPAY ==
--- NOTE | 2019-09-13 | DI.CT.S_ITS ---
PROCEDURE: CT CHEST WO CON INDICATIONS: Other nonspecific abnormal finding of lung field TECHNIQUE: Noncontrast 5 mm thick sections acquired from the pulmonary apices to the posterior costophrenic angles. 1 mm lung window, 5 mm thick coronal and sagittal and 7 mm axial MIP reformats were then acquired. For radiation dose reduction, the following was used: automated exposure control, adjustment of mA and/or kV according to patient size. COMPARISON: [facility], CT, CT KIDNEY URETER BLADDER (KUB), 02/25/2019, 3:59. [facility], CT, CT ABDOMEN PELVIS WO/W CON, 03/01/2019, 12:39. FINDINGS: Image quality: Excellent. Lungs and pleura: No acute air space opacities. The ovoid 5 mm nodule at the lateral left lung base (series 3 image 11 03/01/19) and again seen (3 image 289 09/13/19) has not changed. No pleural effusions or pneumothorax. Central and peripheral airways are patent and normal in caliber. Mediastinum: Heart size is normal. No pericardial effusion. No mediastinal adenopathy by size criteria. Thoracic aorta and central pulmonary arteries are normal in size. Esophagus is normal in caliber. No hiatal hernia. Bones and chest wall: No suspicious bony lesions. No vertebral body compression fractures. No axillary or supraclavicular adenopathy by size criteria. Thyroid gland is not well-seen by this noncontrast technique. Abdomen: Visualized upper abdominal solid organs and bowel loops appear normal in the absence of contrast. IMPRESSION: Stable 5 mm ovoid pulmonary nodule left lower lobe with reference to the prior study from 03/01/19. Management of a nodule of this small size is dependent on the risk factors of the patient and please correlate for followup recommendations with the Fleischner Society guidelines for followup of small pulmonary nodules. Dictated by: Miguel Terrell M.D. on 09/13/2019 at 13:39 Approved by: Miguel Terrell M.D. on 09/13/2019 at 13:45
== END ==
PROVIDERS: PCP Internal Medicine; Visit Provider Internal Medicine
DX: R91.1 Solitary pulmonary nodule (principal)
CPT/HCPCS: 71250

== ENCOUNTER → 2020-05-31 07:48 | Outpatient (CLI) | payer MEDICARE, SELFPAY | PROVIDERS: PCP Internal Medicine; Referring Provider Urology; Visit Provider Urology | DX: C61 Malignant neoplasm of prostate (principal) | CPT/HCPCS: 36415; 84153 ==

== ENCOUNTER → 2020-10-04 07:39 | Outpatient (CLI) | payer MEDICARE, SELFPAY ==
[2020-10-04] MEDS: COVID-19 VACC #1, MRNA(MOD) 100 MCG/0.5 ML VIAL IM (07:44)
== END ==
PROVIDERS: PCP Internal Medicine; Visit Provider Internal Medicine
DX: Z23 Encounter for immunization (principal)
CPT/HCPCS: 0011A; 91301

== ENCOUNTER → 2020-10-23 08:02 | Outpatient (CLI) | payer MEDICARE, SELFPAY ==
[2020-10-23 10:30] LABS: Prostate Specific Antigen 6.25 ng/mL (0.10-4.00)
== END ==
PROVIDERS: PCP Internal Medicine; Referring Provider Internal Medicine; Visit Provider Urology
DX: C61 Malignant neoplasm of prostate (principal)
CPT/HCPCS: 36415; 84153

== ENCOUNTER → 2020-11-01 07:40 | Outpatient (CLI) | payer MEDICARE, SELFPAY ==
[2020-11-01] MEDS: COVID-19 VACC #2, MRNA(MOD) 100 MCG/0.5 ML VIAL IM (07:49)
== END ==
PROVIDERS: PCP Internal Medicine; Visit Provider Internal Medicine
DX: Z23 Encounter for immunization (principal)
CPT/HCPCS: 0012A; 91301

== ENCOUNTER → 2021-04-29 07:48 | Outpatient (CLI) | payer MEDICARE, SELFPAY ==
[2021-04-29 09:18] LABS: Prostate Specific Antigen 5.51 ng/mL (0.10-4.00)
== END ==
PROVIDERS: PCP Internal Medicine; Referring Provider Urology; Visit Provider Urology
DX: Z85.46 Personal history of malignant neoplasm of prostate (principal)
CPT/HCPCS: 36415; 84153

== ENCOUNTER → 2021-12-02 07:41 | Outpatient (CLI) | payer MEDICARE, SELFPAY ==
[2021-12-02 09:45] LABS: Prostate Specific Antigen 5.39 ng/mL (0.10-4.00)
== END ==
PROVIDERS: PCP Internal Medicine; Referring Provider Urology; Visit Provider Urology
DX: Z85.46 Personal history of malignant neoplasm of prostate (principal)
CPT/HCPCS: 36415; 84153

== ENCOUNTER → 2022-06-15 09:52 | Outpatient (CLI) | payer MEDICARE, SELFPAY ==
[2022-06-15 11:42] LABS: Prostate Specific Antigen 5.16 ng/mL (0.10-4.00)
== END ==
PROVIDERS: PCP Internal Medicine; Referring Provider Urology; Visit Provider Urology
DX: C61 Malignant neoplasm of prostate (principal)
CPT/HCPCS: 36415; 84153

== ENCOUNTER → 2022-11-30 08:30 | Outpatient (CLI) | payer MEDICARE, SELFPAY ==
[2022-11-30 17:23] LABS: Prostate Specific Antigen 4.62 ng/mL (0.10-4.00)
== END ==
PROVIDERS: PCP Internal Medicine; Referring Provider Urology; Visit Provider Urology
DX: C61 Malignant neoplasm of prostate (principal)
CPT/HCPCS: 36415; 84153

== ENCOUNTER → 2022-12-02 16:35 | Outpatient (CLI) | payer MEDICARE, SELFPAY ==
--- NOTE | 2022-12-02 16:39 | DI.RAD.S_ITS ---
PROCEDURE: XR RIBS RT MIN 3V W CXR 1V INDICATIONS: Rib trauma TECHNIQUE: 2 views of the right ribs were acquired, along with a single view chest. COMPARISON: None. FINDINGS: Surgical changes and devices: None. Bones and chest wall: No fractures or dislocations. No suspicious bony lesions. Overlying soft tissues appear unremarkable. Lungs and pleura: No pleural effusions or pneumothorax. Lungs appear clear. Mediastinum: Mediastinal contours appear normal. Heart size is normal. IMPRESSION: Negative chest and right rib detail films. Dictated by: Isiah Price M.D. on 12/02/2022 at 16:51 Approved by: Isiah Price M.D. on 12/02/2022 at 16:53
== END ==
PROVIDERS: PCP Internal Medicine; Referring Provider Nurse Practitioner Family; Visit Provider Nurse Practitioner Family
DX: S29.9XXA Unspecified injury of thorax, initial encounter (principal); X58.XXXA Exposure to other specified factors, initial encounter
CPT/HCPCS: 71101

== ENCOUNTER → 2023-04-06 12:01 | Outpatient (CLI) | payer MEDICARE, SELFPAY ==
--- NOTE | 2023-04-06 | DI.MRI.S_ITS ---
PROCEDURE: MR HIP LT WO CON INDICATIONS: left hip tendonitis TECHNIQUE: Noncontrast coronal T1 spin echo and STIR through the bony pelvis. Coronal and axial T2 fast spin echo with fat saturation, sagittal T1 spin echo, and oblique axial T2 fast spin echo with fat saturation through the hip. COMPARISON: None. FINDINGS: Image quality: Excellent. Bones and joints: Mild bilateral hip joint periarticular osteophyte formation. Bone marrow of the pelvic ring and proximal femurs show normal signal throughout. No intraosseous lesions or fractures. No avascular necrosis of the femoral heads. The visualized lower lumbar spine appears normally aligned. Tendons and ligaments: There is moderate grade tearing of the left gluteus medius and minimus tendons at the femoral insertion sites. The nearby proximal iliotibial band also appears intact. The iliopsoas tendon appears intact, without adjacent bursal fluid collections or evidence for impingement syndrome. The origin of the hamstring tendon is intact at the ischial tuberosity, as well as the associated sacrotuberous ligament. Mild T2 signal elevation within and adjacent to the proximal hamstring tendon at the ischial origin. The straight and reflected heads of the rectus femoris muscle origin appear intact, as well as the conjoint tendon. The ligamentum teres appears intact where visualized. Labrum and cartilage: Diffuse tearing of the left hip labrum. Cartilage surface of the femoral head appears of normal thickness. The alpha angle of the femur is within normal limits at less than 55 degrees. Soft tissues: Visualized muscles demonstrate normal bulk and internal signal. Quadratus femoris muscle demonstrates no internal edema to suggest ischiofemoral impingement. The proximal sciatic neurovascular bundle appears normal adjacent to the hamstring tendons. No free pelvic fluid. Bladder wall thickness is normal. Prostate is enlarged. Genitourinary structures and bowel loops otherwise appear normal where visualized. IMPRESSION: 1. Left hip osteoarthritis associated with degenerative left hip labral tearing. 2. Partial-thickness tearing of the left gluteus medius and minimus tendons. 3. Mild left hamstring tendinopathy. 4. Prostate enlargement. Dictated by: Man Garcia M.D. on 04/06/2023 at 16:23 Approved by: Man Garcia M.D. on 04/06/2023 at 16:25
== END ==
PROVIDERS: PCP Internal Medicine; Referring Provider Orthopaedic Surgery; Visit Provider Orthopaedic Surgery
DX: S73.192A Other sprain of left hip, initial encounter (principal); S76.012A Strain of muscle, fascia and tendon of left hip, initial encounter; M16.12 Unilateral primary osteoarthritis, left hip; M76.892 Other specified enthesopathies of left lower limb, excluding foot; N40.0 Benign prostatic hyperplasia without lower urinary tract symptoms
CPT/HCPCS: 73721

== ENCOUNTER → 2024-04-27 08:54 | Outpatient (CLI) | payer MEDICARE, SELFPAY ==
--- NOTE | 2024-04-27 08:56 | DI.CT.S_ITS ---
PROCEDURE: CT ABDOMEN PELVIS W CON INDICATIONS: right upper quadrant pain TECHNIQUE: After the administration of intravenous contrast, axial sections acquired from the lung bases to the pubic symphysis. Coronal and sagittal reformats were performed. For radiation dose reduction, the following was used: automated exposure control, adjustment of mA and/or kV according to patient size. COMPARISON: [facility], CT, CT CHEST WO CON, 09/13/2019, 11:09. FINDINGS: Image quality: Diagnostic. Lower Chest: Left lung base pulmonary nodule measuring 0.4 cm. No significant hiatal hernia demonstrated. ABDOMEN: Liver: No solid mass. Gallbladder: No radiopaque gallstones or wall thickening. Biliary ducts: No biliary dilation. Pancreas: No ductal dilation. Spleen: Size is within normal limits. Adrenal Glands: No adrenal nodules. Kidneys and Ureters: Mild right pelvocaliectasis. Increased conspicuity of the renal pelvis wall. Stone within the right renal pelvis measuring 1.6 x 0.9 cm. Minimal stranding at the proximal right ureter. No solid mass. No complex renal cystic lesion which requires follow up. Low-density cysts bilaterally. Small right peripelvic cysts. Stomach and Bowel: Normal colonic caliber, without significant wall thickening. Diverticulosis. Normal appendix. Peritoneum: No abnormal intraperitoneal fluid. No free air. Ventral Wall: No significant ventral hernia. Abdominal Nodes: No retroperitoneal or mesenteric adenopathy by size criteria. Vessels: Aorta and inferior vena cava are normal in size. PELVIS: Pelvic Organs: Prostatomegaly with median lobe hypertrophy.. Bladder: No bladder wall thickening, accounting for underdistention. Pelvic Nodes: No enlarged lymph nodes. Miscellaneous: No inguinal hernias are seen. Bones: No aggressive osseous abnormality. IMPRESSION: 1. Mild right pelvocaliectasis. Stone in the right renal pelvis measuring 1.6 cm. Suspect mild obstruction. 2. Minimal stranding at the proximal right ureter. Difficult to exclude upper urinary tract infection. However, no striated nephrogram. 3. Diverticulosis. No diverticulitis. 4. Prostatomegaly. No adenopathy. Dictated by: Richard Carl M.D. on 04/27/2024 at 15:49 Approved by: Richard Carl M.D. on 04/27/2024 at 16:04
== END ==
PROVIDERS: PCP Internal Medicine; Referring Provider Internal Medicine; Visit Provider Internal Medicine
DX: K57.90 Diverticulosis of intestine, part unspecified, without perforation or abscess without bleeding (principal); R91.1 Solitary pulmonary nodule; R63.4 Abnormal weight loss; R10.11 Right upper quadrant pain; R10.84 Generalized abdominal pain; N40.0 Benign prostatic hyperplasia without lower urinary tract symptoms
CPT/HCPCS: 74177; Q9967

== ENCOUNTER → 2024-04-28 07:50 | Outpatient (CLI) | payer MEDICARE, SELFPAY ==
[2024-04-28 08:08] LABS: Appearance Urine UA CLEAR; Bilirubin Urine UA NEGATIVE (NEGATIVE); Color Urine UA YELLOW; Glucose Urine UA NEGATIVE (Negative); Ketones Urine UA NEGATIVE (NEGATIVE); Leukocyte Esterase Urine UA NEGATIVE (NEGATIVE); Nitrite Urine UA NEGATIVE (Negative); Occult Blood Urine UA 1+ (Negative); Protein Urine UA NEGATIVE (Negative); Specific Gravity Urine UA 1.025 (1.000-1.035); Urobilinogen Urine UA 0.2 E.U./dL (0.2)
[2024-04-28 08:09] LABS: Urine Volume 10mL (spun)
[2024-04-28 08:10] LABS: RBC Urine 1-5/HPF (0-5/HPF)
[2024-04-28 08:11] LABS: Bacteria Urine None Seen; Culture Indicated Urine Cult Not Indicated; Squamous Epithelial Cell Urine 1-5 /HPF (0-5/HPF); WBC Urine None Seen (0-5/HPF)
== END ==
PROVIDERS: PCP Internal Medicine; Referring Provider Internal Medicine; Visit Provider Internal Medicine
DX: N20.0 Calculus of kidney (principal); R93.429 Abnormal radiologic findings on diagnostic imaging of unspecified kidney
CPT/HCPCS: 81001

== ENCOUNTER → 2024-05-01 11:06 | Outpatient (CLI) | payer MEDICARE, SELFPAY | PROVIDERS: PCP Internal Medicine; Visit Provider Urology | DX: R39.9 Unspecified symptoms and signs involving the genitourinary system (principal) | CPT/HCPCS: 87086 ==

== ENCOUNTER 2024-05-05 07:49 | Day surgery (SDC) | payer MEDICARE, SELFPAY ==
[2024-05-02 15:26] VITALS: BMI 22.9
--- NOTE | 2024-05-05 | DI.RAD.S_ITS ---
PROCEDURE: XR ABDOMEN 1V INDICATIONS: RT STENT PLACEMENT TECHNIQUE: A total of 2 intra-operative images acquired by the Urology service. COMPARISON: [facility], CT, CT ABDOMEN PELVIS W CON, 04/27/2024, 9:41. FINDINGS: Double pigtail ureteral stent has been placed with the pigtail extending into a lateral dilated calyx of the right kidney. Similar dilatation is present over the upper and lower thirds of the right renal collecting system elsewhere. The lower pigtail is within the bladder lumen. A faintly visualized calculus is at the lower margin of the contrast column sequestered above the presumed ureteropelvic junction calculus. IMPRESSION: Double pigtail right-sided ureteral catheter crossing a previously diagnosed large renal pelvis calculus. Dictated by: Miguel Terrell M.D. on 05/05/2024 at 13:25 Approved by: Miguel Terrell M.D. on 05/05/2024 at 13:27
[2024-05-05 08:17] VITALS: BP 160/78; PULSE 59; RESP 16; TEMP 36.1; O2SAT 99; BMI 22.9
[2024-05-05] MEDS: LACTATED RINGERS 1,000 ML 21 ML IV (08:32)
--- NOTE | 2024-05-05 09:32 | PM.PREOP ---
Pre-operative Note COVID-19 COVID-19 status: Not tested Interval Note History & Physical reviewed/Exam performed by Physician: Yes Changes to H&P: No
--- NOTE | 2024-05-05 09:46 | SUR.OPER ---
Lithotomy on padded OR bed, head on pillow, arms secured on padded arm boards at <90 degrees abduction. Legs secured in padded yellow fins stirrups.
[2024-05-05] MEDS: CEFAZOLIN 2 GM/100 ML PREMIX 100 ML IV (09:58)
[2024-05-05] MEDS: iopamidoL 30 ML VIAL 10 ML INTRAURETH (11:19)
[2024-05-05 11:36] VITALS: BP 144/82; PULSE 65; RESP 14; TEMP 36.4; O2SAT 99
[2024-05-05 11:41] VITALS: BP 149/82; PULSE 68; RESP 11; O2SAT 98
[2024-05-05 11:46] VITALS: BP 150/81; PULSE 68; RESP 14; O2SAT 97
[2024-05-05 11:48] VITALS: BP 150/81; PULSE 68; RESP 10; TEMP 36.2; O2SAT 97
--- NOTE | 2024-05-05 12:56 | P.OP_ITS ---
Procedure & Clinicians Procedure: Cystoscopy Right retrograde ureteropyelogram Right ureteroscopy, laser lithotripsy Right ureteral stent placement Intraoperative interpretation of fluoroscopic images, total time < 1 hour, all images saved to PACS Same procedure as scheduled: Yes Indications: 73 y/o M w/ a large right UPJ calculus who strongly desired surgical management via a right ureteroscopy with laser liothotripsy. Surgeon: Polo Miranda Click Yes if Unassisted: Yes Anesthesia Type: General Operative Notes Findings: Large right UPJ calculus, severe J-hook of right proximal ureter Closure Type: not applicable Specimen(s): none sent Estimated Blood Loss (mL): 3 Blood products transfused: none Procedure in detail: Procedures: 1) Cystoscopy 2) Right retrograde ureteropyelogram 3) Right ureteroscopy, laser lithotripsy 4) Right ureteral stent exchange 5) Intraoperative interpretation of fluoroscopic images, < 1 hour, all images saved to PACS Indication: Patient was identified in the preoperative holding area and consent confirmed. He was then brought to the operating room where general anesthesia was induced.? He was placed in the low lithotomy position. He was then prepped and draped in the usual sterile fashion. A surgical timeout was conducted and all were in agreement. ?Access to the bladder was obtained via a 30 degree cystoscope.? Complete cyst oscopy was then performed and no concerning bladder masses or lesions were appreciated.? Bilateral ureteral orifices were easily identified and noted to be orthotopic in nature.? He was noted to be have trilobar hyperplasia of his prostate with a moderate sized intravesical median lobe. The right ureteral orifice was easily cannulated using a 5Fr ureteral catheter over a 0.035 sensor tip ureteral guidewire. The guidewire was advanced to the level of the right UPJ and the ureteral catheter and cystoscope were removed. A 12/14Fr ureteral access sheath was then advanced over the ureteral guidewire and into the proximal right ureter.? The ureteral guidewire and inner obturator were then removed.? The flexible ureteroscope was then advanced through the ureteral access sheath and to the level of the right proximal ureter. Unfortunately, severe J-hooking of his right proximal ureter was noted. After multiple attempts to drive the scope into the right UPJ, it was ultimately successful. A large stone was immediately appreciated within his right renal pelvis. Complete pyeloscopy was then performed and no other stones were appreciated. Laser lithotripsy was performed using a 200 micron laser fiber. Due to severe J- hooking of his ureter, no stone fragments were removed via the stone basket as I feared we would lose access to his right renal collecting system. At the end of the procedure, all stone fragments were noted to be < 1mm in greatest diameter. A retrograde pyelogram was then performed which noted no filling defects concerning for residual stone or contrast extravasation.? The ureteral guidewire was then readvanced through the ureteroscope and into the right renal pelvis.? The ureter was then directly visualized upon removal of the ureteroscope and ureteral access sheath and noted to be stone free.? The cystoscope was then backloaded over the ureteral guidewire and advanced into the bladder.? A 6Fr multi-length JJ ureteral stent with strings was then advanced over the ureteral guidewire.? Upon removal of the guidewire, a good curl was noted within the right renal pelvis upon fluoroscopy and visually within the bladder.? The bladder was then drained and the cystoscope was removed.? Anesthesia was reversed, he was extubated in the OR and transferred to the PACU in stable condition for recovery. Complications: none Post-operative Condition: stable Disposition: PACU Plan for aftercare: Discharge home from PACU. Will remove his ureteral stent at home on 10 May 2024. He will then have a renal bladder ultrasound performed roughly 8 weeks after his procedure to evaluate for residual right hydronephrosis. He will return to clinic to review the results of his imaging.
== END 2024-05-05 12:17 | disposition home or self-care (01) ==
PROVIDERS: PCP Internal Medicine; Referring Provider Urology; Visit Provider Urology
PROC: 0TF68ZZ Fragmentation in Right Ureter, Via Natural or Artificial Opening Endoscopic (ICD-10-PCS; CPT 52353; principal; 2024-05-05 09:15)
DX: N20.1 Calculus of ureter (principal); R33.8 Other retention of urine; R31.9 Hematuria, unspecified; R33.9 Retention of urine, unspecified
CPT/HCPCS: 52356; 51702; 74018; 76000; 99283; J0690; J2405; J2704; J3010; Q9967

== ENCOUNTER 2024-05-05 20:52 | Emergency (ER) | payer MEDICARE, SELFPAY ==
[2024-05-05 21:00] VITALS: BP 148/78; PULSE 98; RESP 18; TEMP 36.7; O2SAT 95; BMI 22.2
--- NOTE | 2024-05-05 21:33 | ED.GENADULT ---
HPI - General Adult General Chief complaint: Urogenital-Male Stated complaint: Can't Urinate post kidney stone removal Time Seen by Provider: 05/05/24 21:16 Source: patient Mode of arrival: Ambulatory Limitations: no limitations History of Present Illness HPI narrative: Patient is a 73-year-old male who earlier today underwent a urologic procedure for removal of kidney stones. He was a stent placed. Patient has not been able to urinate since the procedure. He was having quite a bit of discomfort in the lower abdomen. No fevers. No vomiting. He does report passing a small amount of blood clots. Related Data Home Medications Medication Instructions Recorded Confirmed tamsulosin 0.4 mg capsule (Flomax) 0.8 mg PO QDAY 04/26/18 05/01/24 fluoxetine 20 mg capsule 20 mg PO DAILY 05/01/24 05/05/24 ipratropium bromide 42 mcg (0.06 2 spray intranasal TID 05/01/24 05/01/24 %) nasal spray meloxicam 15 mg tablet 15 mg PO DAILY 05/01/24 05/05/24 multivitamin with folic acid 400 1 tab PO DAILY 05/01/24 05/01/24 mcg tablet (Quintabs) pantoprazole 40 mg tablet,delayed 40 mg PO DAILY 05/01/24 05/05/24 release tadalafil 20 mg tablet 20 mg PO DAILY PRN 05/01/24 05/01/24 Previous Rx's Medication Instructions Recorded dorzolamide 2 % eye drops 1 drp OPHTH BID ##1 04/27/17 timolol maleate 0.25 % eye drops 1 drp OPHTH BID ##1 10/11/17 (Timoptic) latanoprost 0.005 % eye drops 1 drp OPHTH HS ##1 03/11/18 atorvastatin 10 mg tablet (Lipitor) 10 mg PO HS #90 tabs 04/26/18 bupropion HCl 150 mg tablet,12 hr 150 mg PO BID #180 tabs 04/26/18 sustained-release (Wellbutrin SR) oxycodone 5 mg tablet 5 mg PO BID PRN pain #5 tabs 05/05/24 Allergies Allergy/AdvReac Type Severity Reaction Status Date / Time No Known Drug Allergies Allergy Verified 05/05/24 08:30 Review of Systems Review of Systems Narrative: See HPI Patient History Medical History Nephrolithiasis Gastritis Diverticulosis History of kidney stones History of prostate cancer History of BPH Hx of chronic arthritis Spondylolisthesis Measles Chicken pox Tinnitus Hearing loss Prostate cancer Fracture of phalanx of left index finger Spinal stenosis Depression Chronic back pain Glaucoma BPH (benign prostatic hyperplasia) Elevated PSA Hyperlipidemia HTN (hypertension) Surgical History (Updated 05/02/24 @ 15:33 by Kathia Avendaño RN) H/O prostate biopsy History of amputation of finger History of colonoscopy H/O left inguinal hernia repair Family History Father History of carotid endarterectomy Stroke BPH (benign prostatic hyperplasia) Cancer Mother Heart disease Hypertension High cholesterol UTI (urinary tract infection), uncomplicated Sister Age: 65 Borderline personality disorder Grandmother Diabetes mellitus Social History marital status: household members: spouse Smoking Status: Never smoker alcohol intake: former caffeine: No Type(s) of exercise: walking frequency: daily duration: 60-90 minutes/day Smoking Status: Never smoker alcohol intake frequency: a few times a week Substance Use Type: marijuana Exam Initial Vital Signs Initial Vital Signs: Vital Signs Temperature 98.1 F 05/05/24 21:00 Pulse Rate 98 H 05/05/24 21:00 Respiratory Rate 18 05/05/24 21:00 Blood Pressure 148/78 H 05/05/24 21:00 Pulse Oximetry 95 05/05/24 21:00 Oxygen Delivery Method Room Air 05/05/24 21:00 Const General: cooperative, comfortable and No ill appearing GI Inspection: normal to inspection and non-distended Palpation: soft and No tender Other: Bernabe catheter in place Course Orders Ordered: Discontinued Medications Lidocaine HCl (Lidocaine 2% (Glydo) 6 Ml Gel) 6 ml TOP NOW ONE Stop: 05/05/24 21:09 Last Admin: 05/05/24 21:35 Dose: 6 ml Documented By: LICO Vital Signs Vital signs: Vital Signs - 8 hr 05/05/24 21:00 05/05/24 22:05 Temperature 98.1 F Pulse Rate 98 H 75 Respiratory Rate 18 15 Blood Pressure 148/78 H 137/67 Pulse Oximetry 95 95 Oxygen Delivery Method Room Air Room Air Medical Decision Making MDM Narrative Medical decision making narrative: Patient had a Bernabe catheter in place prior to my initial evaluation which drained greater than 500 cc of urine. He reports a fast improvement of his symptoms. The urine is bloody however there are no clots noted. It is draining freely. Afebrile. Be strain from the stent is still visible through the urethral meatus. Plan will be to discharge home with a Bernabe catheter in place. He was advised to make sure that he was drinking plenty of fluids. We discussed that there is still possibility that he can develop clots and so with the Bernabe catheter stops draining he needs to return. He was also advised to contact the urology department at the beginning of next week for follow-up. He expressed understanding and agreement with the plan. Discharge Plan Departure Patient Disposition: Home Clinical Impression: Acute retention of urine, Hematuria Instructions: How to Care for Your Bernabe Catheter -- Male, DI for Hematuria, DI for Urinary Retention in Men Activity Restrictions/Additional Instructions: Follow all of the post operative instructions given to you by the urologist. At the beginning of next week contact the urologist office for a follow-up. Be sure that you are drinking plenty of fluids. Expect continued blood in the urine over the next couple days however if it stops draining into the catheter please return to the emergency department for further evaluation. Prescriptions: No Action dorzolamide 2 % drops 1 drp OPHTH BID Qty: 1 3RF timolol maleate [Timoptic] 0.25 % drops 1 drp OPHTH BID Qty: 1 3RF Patient Comments: has taken for 3 or so months latanoprost 0.005 % drops 1 drp OPHTH HS Qty: 1 3RF tamsulosin [Flomax] 0.4 mg capsule 0.8 mg PO QDAY atorvastatin [Lipitor] 10 mg tablet 10 mg PO HS Qty: 90 3RF bupropion HCl [Wellbutrin SR] 150 mg tablet extended release 12 hr 150 mg PO BID Qty: 180 3RF oxycodone 5 mg tablet 5 mg PO BID PRN (Reason: pain) Qty: 5 0RF fluoxetine 20 mg capsule 20 mg PO DAILY ipratropium bromide 42 mcg (0.06 %) spray,non-aerosol 2 spray intranasal TID Rx Instructions: administer into each nostril pantoprazole 40 mg tablet,delayed release (DR/EC) 40 mg PO DAILY multivitamin with folic acid [Quintabs] 400 mcg tablet 1 tab PO DAILY tadalafil 20 mg tablet 20 mg PO DAILY PRN Rx Instructions: administer approximately 30min before sexual activity; do not use more than 1 dose per 24hrs meloxicam 15 mg tablet 15 mg PO DAILY Referrals: Abigail Greenberg ARNP [Primary Care Provider] - Stand Alone Forms: Patient Portal/API
[2024-05-05] MEDS: LIDOCAINE 2% (GLYDO) 6 ML GEL TOP (21:35)
--- NOTE | 2024-05-05 22:00 | PC.NURSE ---
Discussed home catheter care with patient and spouse. discussed placement of leg bag and how to drain both bags. Pt and spouse able to demonstrate cath care. all questions. Answered
[2024-05-05 22:05] VITALS: BP 137/67; PULSE 75; RESP 15; O2SAT 95
== END 2024-05-05 22:07 | disposition home or self-care (01) ==
PROVIDERS: Emergency Provider Emergency Medicine; PCP Internal Medicine
DX: R33.9 Retention of urine, unspecified (principal); R31.9 Hematuria, unspecified
CPT/HCPCS: 99283

== ENCOUNTER → 2024-05-10 14:25 | Outpatient (CLI) | payer MEDICARE, SELFPAY | PROVIDERS: PCP Internal Medicine; Visit Provider Urology | DX: N40.1 Benign prostatic hyperplasia with lower urinary tract symptoms (principal) | CPT/HCPCS: 87086 ==

== ENCOUNTER → 2024-05-18 06:52 | Outpatient (CLI) | payer MEDICARE, SELFPAY ==
--- NOTE | 2024-05-18 06:53 | DI.US.S_ITS ---
PROCEDURE: US RENAL COMPLETE INDICATIONS: RIGHT RENAL PELVIS STONE. RECENT STENT REMOVAL. TECHNIQUE: Real-time scanning was performed of the kidneys and bladder, with image documentation. COMPARISON: [facility], CT, CT ABDOMEN PELVIS W CON, 04/27/2024, 9:41. FINDINGS: Kidneys: Kidneys are normal in size. Right kidney measures 10.6 cm long; left kidney measures 11.1 cm long. Right renal cortical thickness is 1.8 cm; left renal cortical thickness is 0.8 cm. Punctate echogenic foci are seen scattered in right renal cortex. 1.3 x 0.6 cm echogenic focus is seen in lower pole of right kidney. 8 x 7 mm echogenic focus is seen in midpole of right kidney. Multiple simple cysts are noted in right kidney measures up to 2.8 x 3.4 x 2.9 cm in size. Mild dilatation of proximal right ureter is seen measures 0.7 cm in diameter. Diffuse left renal cortical thinning. Multiple simple appearing cysts are seen scattered in left renal parenchyma measures up to 7 x 5 x 7 mm in size. Multiple linear echogenic foci are noted in left kidney and may represent vascular calcifications. No left-sided hydronephrosis. Bladder: Pre-void bladder volume is 198 mL. Post-void residual is 24 mL. Pre-void images demonstrate mole bile debris and punctate echogenic foci within bladder lumen. There is possible 1.2 x 1 cm stone seen in right side of urinary bladder dependent portion near UVJ. Mobile stone also seen in mid urinary bladder measures 8 x 8 mm in size. On pre-void images, left ureteral jets are noted with color Doppler interrogation. (Of note, ureteral jets may not be detectable in up to 25% of cases due to insufficient differences in specific gravity between ureteral and bladder urine). Miscellaneous: No free pelvic fluid. Enlarged prostate gland with mass effect on floor of urinary bladder is seen and measures 5.5 x 4.6 x 3.8 cm in size. IMPRESSION: 1. Suggestion of bilateral nonobstructing renal stones and bilateral simple appearing renal cysts as above. No definite solid appearing renal lesion. 2. Mild prominence of right renal pelvis without obstructing stone seen. Mild residual right-sided hydronephrosis cannot be excluded. No left-sided hydronephrosis. Diffuse left renal cortical thinning. 3. Suggestion of several bladder stones. Small amount of internal debris. No definite bladder wall mass. Enlarged prostate gland with mass effect on floor of urinary bladder. Dictated by: Krishna Mason M.D. on 05/18/2024 at 13:42 Approved by: Krishna Mason M.D. on 05/18/2024 at 13:48
== END ==
PROVIDERS: PCP Internal Medicine; Referring Provider Urology; Visit Provider Urology
DX: N20.1 Calculus of ureter (principal); N28.1 Cyst of kidney, acquired; N40.0 Benign prostatic hyperplasia without lower urinary tract symptoms
CPT/HCPCS: 76770

== ENCOUNTER → 2024-06-01 14:28 | Outpatient (CLI) | payer MEDICARE, SELFPAY ==
--- NOTE | 2024-06-01 14:29 | DI.CT.S_ITS ---
PROCEDURE: CT KIDNEY URETER BLADDER (KUB) INDICATIONS: 73 y/o M w/ left flank pain, eval for stone TECHNIQUE: Axial sections were acquired from the lung bases to the pubic symphysis. Coronal and sagittal reformats were performed. For radiation dose reduction, the following was used: automated exposure control, adjustment of mA and/or kV according to patient size. COMPARISON: [facility], CT, CT ABDOMEN PELVIS W CON, 04/27/2024, 9:41. [facility], CT, CT KIDNEY URETER BLADDER (KUB), 02/25/2019, 3:59. FINDINGS: Image quality: Diagnostic. Lower Chest: Stable 4 millimeter left lung base nodule (3/14). URINARY: Right Kidney: Nonobstructing right renal stones measuring up to 7 millimeters. No hydronephrosis. Simple appearing renal cysts are present. Right Ureter: No hydroureter. Left Kidney: No stones or hydronephrosis. Left Ureter: No hydroureter. Bladder: Normal wall thickness. No stones. ABDOMEN: Liver: No contour-deforming solid mass. Gallbladder: No radiopaque gallstones or wall thickening. Biliary ducts: No biliary dilation. Pancreas: No ductal dilation. Spleen: Size is within normal limits. Adrenal Glands: No adrenal nodules. Stomach and Bowel: Normal colonic caliber, without significant wall thickening. Diverticulosis without evidence of acute diverticulitis. Normal appendix. Peritoneum: No abnormal intraperitoneal fluid. No free air. Ventral Wall: No hernia. Abdominal Nodes: No enlarged retroperitoneal or mesenteric lymph nodes. Vessels: Aorta and inferior vena cava are normal in size. Atherosclerotic vascular calcifications. PELVIS: Pelvic Organs: Prostatomegaly. Pelvic Nodes: Unremarkable. Miscellaneous: No inguinal hernias are seen. Bones: Grade 1/2 anterolisthesis of L5 on S1. No pars interarticularis defects. Multilevel degenerative changes of the spine. Decreased osseous mineralization. IMPRESSION: 1. No obstructing stones or hydronephrosis. 2. Nonobstructing right renal stones measuring up to 7 millimeters. 3. Diverticulosis without evidence of acute diverticulitis. 4. Prostatomegaly. 5. Stable 4 millimeter left lower lobe nodule. Dictated by: Tim Almanzar M.D. on 06/01/2024 at 15:15 Approved by: Tim Almanzar M.D. on 06/01/2024 at 15:23
== END ==
PROVIDERS: PCP Internal Medicine; Referring Provider Urology; Visit Provider Urology
DX: C61 Malignant neoplasm of prostate (principal); N20.0 Calculus of kidney; N28.1 Cyst of kidney, acquired; K57.90 Diverticulosis of intestine, part unspecified, without perforation or abscess without bleeding; N52.9 Male erectile dysfunction, unspecified; R91.1 Solitary pulmonary nodule; R10.9 Unspecified abdominal pain; Z87.442 Personal history of urinary calculi
CPT/HCPCS: 74176; 81002; 99214

== ENCOUNTER → 2024-08-07 08:27 | Outpatient (CLI) | payer MEDICARE, SELFPAY ==
[2024-08-07 09:21] LABS: Prostate Specific Antigen 6.93 ng/mL (0.10-4.00)
== END ==
PROVIDERS: PCP Internal Medicine; Referring Provider Urology; Visit Provider Urology
DX: R97.20 Elevated prostate specific antigen [PSA] (principal)
CPT/HCPCS: 36415; 84153

== ENCOUNTER → 2025-02-21 11:07 | Outpatient (CLI) | payer MEDICARE, SELFPAY ==
[2025-02-21 13:03] LABS: Prostate Specific Antigen 8.75 ng/mL (0.10-4.00)
== END ==
PROVIDERS: PCP Family Medicine; Referring Provider Urology; Visit Provider Urology
DX: N40.1 Benign prostatic hyperplasia with lower urinary tract symptoms (principal); C61 Malignant neoplasm of prostate
CPT/HCPCS: 36415; 84153

== ENCOUNTER → 2025-03-15 09:18 | Outpatient (CLI) | payer MEDICARE, SELFPAY | PROVIDERS: PCP Family Medicine; Visit Provider Urology | DX: C61 Malignant neoplasm of prostate (principal); N20.1 Calculus of ureter; N52.9 Male erectile dysfunction, unspecified; Z87.442 Personal history of urinary calculi | CPT/HCPCS: 51741; 51798; 52000; 87086; 99214 ==

== ENCOUNTER 2025-04-03 08:14 | Day surgery (SDC) | payer MEDICARE, SELFPAY ==
[2025-03-28 14:19] VITALS: BMI 25.2
[2025-04-03] VITALS (8 sets, daily range): BP systolic 119–150; BP diastolic 59–82; PULSE 45–64; RESP 12–16; TEMP 36.1–36.6; O2SAT 96–99; BMI 24.0
--- NOTE | 2025-04-03 | PATH_ITS ---
[facility] Accession Number: [id number] No. of containers..01 Tissue . 01 Material submitted: . prostate - PROSTATE CHIPS . 01 Diagnosis: PROSTATE, TRANSURETHRAL REESECTION: Benign prostatic tissue with hyperplastic changes. No malignancy is identified. MRV 04/12/2025 1246 Local . 01 Electronically signed: . Sunny Ortiz MD, Dermatopathologist NPI- [id number] . 01 Gross description: . Received in formalin with two identifiers and prostate chips, is a 15 gram, 7.0 x 6.8 x 1.5 cm aggregate of araya rubbery tissue fragments with minimal admixed clotted blood. The specimen is entirely submitted in cassettes A1-A12. ([id number]) /MARINA 04/10/20252056 Local . 01 Pathologist provided ICD-10: N40.1 . 01 CPT . 045278 Specimen Comment: A courtesy copy of this report has been sent to [facility] Performed at: [address] [address], [place], [place] [id number] MD Kayode Basurto MD Phone: [phone]
[2025-04-03] MEDS: FAMOTIDINE 20 MG/2 ML VIAL IV (09:04)
[2025-04-03] MEDS: LACTATED RINGERS 1,000 ML 42 ML IV (09:04)
[2025-04-03] MEDS: ACETAMINOPHEN IV 1,000 MG/100 ML VIAL 400 MG IV (09:05)
--- NOTE | 2025-04-03 10:13 | PM.PREOP ---
Pre-operative Note COVID-19 COVID-19 status: Not tested Interval Note History & Physical reviewed/Exam performed by Physician: Yes Changes to H&P: No
[2025-04-03] MEDS: levoFLOXacin 500 MG/100 ML PIGGYBACK 100 MG IV (10:45)
--- NOTE | 2025-04-03 11:00 | SUR.OPER ---
Lithotomy on padded OR bed, head on pillow, arms secured on padded arm boards at <90 degrees abduction. Legs secured in padded yellow fins stirrups.
[2025-04-03] MEDS: LACTATED RINGERS 1,000 ML 21 ML IV (12:29)
--- NOTE | 2025-04-03 12:41 | PM.OP.1 ---
Operative Date/Time/Diagnoses Date of procedure: 04/03/25 Time of procedure: 11:00 Pre-op diagnosis: Benign prostatic hyperplasia with lower urinary tract symptoms Post-op diagnosis: same Procedure & Clinicians Procedure: Cystoscopy Transurethral resection of prostate Same procedure(s) as scheduled: Yes Indications: 74 y/o M noted to have symptoms consistent w/ BPH and LUTS that are currently managed w/ Tamsulosin 0.8mg daily. He is unhappy with his urinary habits at the moment. Discussed treatment options to include observation, the addition of Finasteride 5mg daily (discussed possible side effects to include decreased libido, worsening erectile dysfunction, loss of ejaculate volume as well as painful breast development or nipple tenderness), or a lower urinary tract evaluation prior to a bladder outlet procedure. His cystoscopy was notable for coaptating lateral prostatic lobes w/ a large intravesical median lobe and his gland size is 82 cc based upon his TRUS prostate biopsy in Aug. Discussed that he otherwise would be a candidate for a TURP (cannot have an Aquablation performed secondary to his h/o prostate cancer). Discussed risks of the procedure to include but not limited to pain, bleeding, infection, injury to urethra/bladder/either ureteral orifice, clot retention, irritative voiding symptoms for several months following the procedure, urinary incontinence, erectile dysfunction, retrograde ejaculation, need for open emergent repair of any bladder or ureteral injuries, urethral stricture or bladder neck contracture development, need for repeat procedures. Surgeon: Polo Miranda Click Yes if Unassisted: Yes Anesthesia Type: General Operative Notes Findings: Coaptating lateral prostatic lobes, large intravesical median lobe Closure Type: not applicable Specimen(s): other (prostate chips) Applied: catheter Estimated Blood Loss (mL): 20 Blood products transfused: none Procedure in detail: Patient was identified in the preoperative holding area and consent confirmed. He was then brought to the operating room where general anesthesia was induced. He was then placed in the low lithotomy position. He was then prepped and draped in the usual sterile fashion. A surgical timeout was conducted and all were in agreement. Access to the bladder was obtained via a 21Fr cystoscope. Complete cystoscopy was then performed using a 30 and 70 degree lens. Bilateral ureteral orifice were easily visualized and noted to be orthotopic in nature. He had grade 2 trabeculations throughout his bladder, no concerning masses or lesions were appreciated. The cystoscope was then removed and his urethral meatus was serially dilated from 24Fr to 30Fr using [place] sounds. The 26Fr resectoscope with visual obturator was then advanced through his urethra and into his bladder. The working element with Gyrus loop was then assembled and passed through the resectoscope and into the bladder. A channel was created from the 5 o'clock position at the level of the bladder neck to a level just immediately proximal to the verumontanum with a depth of the prostatic capsule. This was repeated in similar fashion at the 7 o'clock position. The median lobe, left lateral lobe and right lateral lobe were then completely resected to the level of the prostatic capsule. All prostate specimens were then manually evacuated from the bladder using the resectoscope. Hemostasis was evaluated and noted to be excellent at case end. A 24Fr 3-way hematuria catheter was then inserted into his bladder, 45cc of sterile water was utilized for balloon insufflation. Continuous bladder irrigation was then initiated and it was noted to be clear. Anesthesia was reversed, he was extubated in the OR and transferred to the PACU in stable condition for recovery. Complications: none Post-operative Condition: stable Disposition: PACU Plan for aftercare: Will continue to run CBI for a few hours to evaluate the efflux from his catheter.? Should it remain relatively clear and with minimal blood clots, will discharge home with catheter in place and have him return to Urology clinic in 2 days for a voiding trial.? Should his efflux remain red or have significant clot burden, will admit overnight for observation and continued CBI.
== END 2025-04-03 15:47 | disposition home or self-care (01) ==
PROVIDERS: PCP Family Medicine; Referring Provider Urology; Visit Provider Urology
PROC: 0VT08ZZ Resection of Prostate, Via Natural or Artificial Opening Endoscopic (ICD-10-PCS; CPT 52601; principal; 2025-04-03 09:45)
DX: N40.1 Benign prostatic hyperplasia with lower urinary tract symptoms (principal); N52.9 Male erectile dysfunction, unspecified; R35.0 Frequency of micturition; R35.1 Nocturia; Z85.46 Personal history of malignant neoplasm of prostate; Z87.442 Personal history of urinary calculi
CPT/HCPCS: 52601; J0131; J1100; J1171; J1956; J2405; J2704; J3010; J3490

== ENCOUNTER → 2025-04-05 15:12 | Outpatient (CLI) | payer MEDICARE, SELFPAY | PROVIDERS: PCP Family Medicine; Visit Provider Urology | DX: N40.1 Benign prostatic hyperplasia with lower urinary tract symptoms (principal); Z87.442 Personal history of urinary calculi; C61 Malignant neoplasm of prostate; N52.9 Male erectile dysfunction, unspecified | CPT/HCPCS: 51798; 81002; 87086; 99213 ==

== ENCOUNTER 2025-04-08 07:37 | Emergency (ER) | payer MEDICARE, SELFPAY ==
[2025-04-08 07:54] VITALS: BP 147/80; PULSE 62; RESP 18; TEMP 35.9; O2SAT 98; BMI 23.8
--- NOTE | 2025-04-08 10:03 | ED.MALEGU ---
HPI - Male Genitourinary General Chief complaint: Urogenital-Male Stated complaint: TURP on ; can't urinate Time Seen by Provider: 04/08/25 09:54 Source: patient Mode of arrival: Ambulatory History of Present Illness HPI Narrative: 74 yo m with recent turp procedure done on 04/03/2025 cant urinate now. Verma already placed by his urologist Dr. Miranda. He is not comfortable and ready to be discharged. Related Data Home Medications ?Medication ?Instructions ?Recorded ?Confirmed atorvastatin 10 mg tablet 10 mg PO ONCE PM 04/03/25 04/05/25 Previous Rx's ?Medication ?Instructions ?Recorded bupropion HCl 300 mg 24 hr tablet, 300 mg PO DAILY #90 tabs 09/29/24 extended release fluoxetine 20 mg capsule 20 mg PO DAILY #90 caps 09/29/24 latanoprost 0.005 % eye drops 1 drp EYE-BOTH HS ##1 09/29/24 tadalafil 20 mg tablet 20 mg PO DAILY PRN erectile 09/29/24 dysfunction #20 tabs tamsulosin 0.4 mg capsule (Flomax) 0.8 mg (2 x 0.4 mg) PO QDAY #180 09/29/24 caps dorzolamide 22.3 mg-timolol 6.8 1 drp EYE-BOTH BID #10 mL 11/22/24 mg/mL eye drops ipratropium bromide 42 mcg (0.06 2 spray intranasal 3XD PRN for 01/31/25 %) nasal spray allergies #15 mL Allergies Allergy/AdvReac Type Severity Reaction Status Date / Time No Known Drug Allergies Allergy Verified 04/08/25 07:54 Review of Systems Review of Systems ROS Unobtainable: All systems reviewed & are unremarkable except as noted in HPI and below Patient History Medical History Nephrolithiasis Gastritis Diverticulosis History of kidney stones History of prostate cancer History of BPH Hx of chronic arthritis Spondylolisthesis Measles Chicken pox Tinnitus Hearing loss Prostate cancer Fracture of phalanx of left index finger Spinal stenosis Depression Chronic back pain Glaucoma BPH (benign prostatic hyperplasia) Elevated PSA Hyperlipidemia HTN (hypertension) Surgical History Hx of cystoscopy (05/05/24) H/O prostate biopsy History of amputation of finger History of colonoscopy H/O left inguinal hernia repair Family History Father History of carotid endarterectomy Stroke BPH (benign prostatic hyperplasia) Cancer Mother Heart disease Hypertension High cholesterol UTI (urinary tract infection), uncomplicated Sister Age: 66 Borderline personality disorder Grandmother Diabetes mellitus Social History marital status: household members: spouse alcohol intake: former caffeine: No Type(s) of exercise: walking frequency: daily duration: 60-90 minutes/day Smoking Status: Never smoker alcohol intake frequency: a few times a week Exam Narrative Exam Narrative: General: Patient appears to be in no acute distress, acting appropriately Head: normocephalic, atraumatic, HEENT: Pupils equal round reactive, eyes tracking well, neck supple, no JVD Heart: regular rate and rhythm, no murmurs, rubs, or gallops heard Lungs: clear to auscultation, no adventitious sounds Abdomen: soft , nontender, nondistended, positive bowel sounds, verma in place, clear urine Neurological: no focal neurological signs, moving all extremities well, alert and oriented x3, Psych: good judgment ,good insight, mood is normal. Initial Vital Signs Initial Vital Signs: Vital Signs Temperature 96.7 F L 04/08/25 07:54 Pulse Rate 62 04/08/25 07:54 Respiratory Rate 18 04/08/25 07:54 Blood Pressure 147/80 H 04/08/25 07:54 Pulse Oximetry 98 04/08/25 07:54 Oxygen Delivery Method Room Air 04/08/25 07:54 Course Course Course Narrative: Patient had a recent TURP procedure and since then could not urinate. Most likely due to some inflammation. Verma placed by urologist Dr. Miranda here in the ED. patient tolerating procedure well and wants to be discharged. Vital Signs Vital signs: Vital Signs - 8 hr 04/08/25 07:54 Temperature 96.7 F L Pulse Rate 62 Respiratory Rate 18 Blood Pressure 147/80 H Pulse Oximetry 98 Oxygen Delivery Method Room Air MDM - Male Genitourinary MDM Narrative Medical decision making narrative: Continue to keep the Verma in place until follow up with urologist. Stay on same medications for now. Can come back in the ER for have her having acute urinary retention, more blood in urine or any new issues. Discharge Plan Departure Patient Disposition: Home Clinical Impression: Acute urinary retention Instructions: DI for Urinary Retention in Men Activity Restrictions/Additional Instructions: Follow up he for urologist as planned. Continue to stay on Flomax. Prescriptions: No Action bupropion HCl 300 mg tablet extended release 24 hr 300 mg PO DAILY Qty: 90 3RF fluoxetine 20 mg capsule 20 mg PO DAILY Qty: 90 3RF latanoprost 0.005 % drops 1 drp EYE-BOTH HS Qty: 1 3RF tadalafil 20 mg tablet 20 mg PO DAILY PRN (Reason: erectile dysfunction) Qty: 20 3RF Rx Instructions: administer approximately 30min before sexual activity; do not use more than 1 dose per 24hrs tamsulosin [Flomax] 0.4 mg capsule 0.8 mg PO QDAY Qty: 180 3RF dorzolamide-timolol 22.3-6.8 mg/mL drops 1 drp EYE-BOTH BID Qty: 10 0RF ipratropium bromide 42 mcg (0.06 %) spray,non-aerosol 2 spray intranasal 3XD PRN (Reason: for allergies) Qty: 15 2RF atorvastatin 10 mg tablet 10 mg PO ONCE PM Referrals: Anai Nichols MD [Primary Care Provider, Family Practice] Stand Alone Forms: Patient Portal/API
--- NOTE | 2025-04-08 10:04 | PC.NURSE ---
Dr. Miranda came into the emergency department and placed 18F coude catheter in patient himself without any assistance from any RN.
[2025-04-08 10:17] VITALS: BP 132/70; PULSE 84; RESP 18; TEMP 36.7; O2SAT 99
--- NOTE | 2025-04-08 11:12 | PM.CN.IH.1 ---
History of Present Illness Consult details Date Patient Seen: 04/08/25 Time Patient Seen: 09:30 Chief complaint: TURP on ; can't urinate Reason for consult: Postoperative urinary retention Narrative: 74 y/o M w/ h/o low-risk prostate cancer and BPH and bothersome LUTS that were not responding well to medical therapy, therefore, he underwent a TURP on 03 Apr 2025. He passed his voiding trial on 05 April 2025, however, he admits that his urinary stream became weaker and weaker over the last couple of days and he was unable to urinate all morning. Therefore, he presented to ER for further evaluation and management. Meds Home Medications and Allergies Home Medications ?Medication ?Instructions ?Recorded ?Confirmed ?Type bupropion HCl 300 mg 24 hr tablet, 300 mg PO DAILY #90 tabs 09/29/24 04/05/25 Rx extended release fluoxetine 20 mg capsule 20 mg PO DAILY #90 caps 09/29/24 04/05/25 Rx latanoprost 0.005 % eye drops 1 drp EYE-BOTH HS ##1 09/29/24 04/05/25 Rx tadalafil 20 mg tablet 20 mg PO DAILY PRN erectile 09/29/24 04/05/25 Rx dysfunction #20 tabs tamsulosin 0.4 mg capsule (Flomax) 0.8 mg (2 x 0.4 mg) PO QDAY #180 09/29/24 04/05/25 Rx caps dorzolamide 22.3 mg-timolol 6.8 1 drp EYE-BOTH BID #10 mL 11/22/24 04/05/25 Rx mg/mL eye drops ipratropium bromide 42 mcg (0.06 2 spray intranasal 3XD PRN for 01/31/25 04/05/25 Rx %) nasal spray allergies #15 mL atorvastatin 10 mg tablet 10 mg PO ONCE PM 04/03/25 04/05/25 History Allergies Allergy/AdvReac Type Severity Reaction Status Date / Time No Known Drug Allergies Allergy Verified 04/08/25 07:54 Review of Systems Review of Systems Narrative: CONSTITUTIONAL: Denies weight loss, fevers, chills. HEENT: Denies change in vision, hearing. RESP: Denies SOB, cough. CV: Denies palpations, CP. GI: Denies abdominal pain, nausea, vomiting, diarrhea. MSK: Denies myalgia, joint pain. SKIN: Denies rash, pruritus. NEURO: Denies headache, syncope. PSYCH: Denies recent change in mood, anxiety, depression. Exam Vital Signs (past 8 hours): - 04/08/25 07:54 04/08/25 10:17 Temperature 96.7 F L 98.1 F Pulse Rate 62 84 Respiratory Rate 18 18 Blood Pressure 147/80 H 132/70 Pulse Oximetry 98 99 Oxygen Delivery Method Room Air Room Air Oxygen Delivery Method Room Air Narrative Exam Narrative: GEN: Alert and oriented X3. No acute distress. Well-nourished. EYES: PERRLA, EOMI. HENT: Moist mucus membranes, no scleral icterus, normal neck ROM. RESP: Unlabored breathing, equal rise and fall of chest bilaterally, no cyanosis appreciated. CV: No peripheral edema, unremarkable heart rate. ABD: Soft, non-tender, non-distended, no palpable masses. : Circumcised penis, no urethral discharge, no meatal stenosis. Under sterile technique, an 18Fr coude catheter was easily advanced into his bladder with immediate drainage of 600 cc's of clear yellow urine. 10 cc of sterile water was utilized for balloon insufflation. EXT: No edema, clubbing or cyanosis. SKIN: No rashes or lesions. NEURO: No focal neurologic deficits, CN II-XII grossly intact. PSYCH: Cooperative, appropriate mood and affect. [facility] Medical History Nephrolithiasis Gastritis Diverticulosis History of kidney stones History of prostate cancer History of BPH Hx of chronic arthritis Spondylolisthesis Measles Chicken pox Tinnitus Hearing loss Prostate cancer Fracture of phalanx of left index finger Spinal stenosis Depression Chronic back pain Glaucoma BPH (benign prostatic hyperplasia) Elevated PSA Hyperlipidemia HTN (hypertension) Surgical History Hx of cystoscopy (05/05/24) H/O prostate biopsy History of amputation of finger History of colonoscopy H/O left inguinal hernia repair Family History Father History of carotid endarterectomy Stroke BPH (benign prostatic hyperplasia) Cancer Mother Heart disease Hypertension High cholesterol UTI (urinary tract infection), uncomplicated Sister Age: 66 Borderline personality disorder Grandmother Diabetes mellitus Social History marital status: household members: spouse Tobacco & Substance Use Smoking Status: Never smoker alcohol intake: former Diet and Exercise caffeine: No Type(s) of exercise: walking frequency: daily duration: 60-90 minutes/day Assessment & Plan Assessment and plan (1) Acute urinary retention: Status: Acute Plan: 74 y/o M w/ h/o low-risk prostate cancer and BPH and bothersome LUTS that were not responding well to medical therapy, therefore, he underwent a TURP on 03 Apr 2025. He passed his voiding trial on 05 April 2025, however, he admits that his urinary stream became weaker and weaker over the last couple of days and he was unable to urinate all morning. A verma catheter was easily placed with drainage of 600 cc's of clear yellow urine. He will continue to take his BPH medications and return to Urology clinic for a voiding trial on 11 Apr 2025. Time-Based Coding :: [TOTAL MINUTES] spent with patient and on the chart (including review of chart, obtaining history, exam, reviewing outside data, placing orders, documenting exam and treatment plan, and counseling patient) on [DATE]. PROFEE Charge Codes Inpatient or Observation consultation: [id number]
== END 2025-04-08 10:18 | disposition home or self-care (01) ==
PROVIDERS: Emergency Provider Family Medicine; PCP Family Medicine
DX: R33.8 Other retention of urine (principal)
CPT/HCPCS: 99281; 99283

== ENCOUNTER → 2025-04-11 15:16 | Outpatient (CLI) | payer MEDICARE, SELFPAY | PROVIDERS: PCP Family Medicine; Visit Provider Urology | DX: N40.1 Benign prostatic hyperplasia with lower urinary tract symptoms (principal); Z87.442 Personal history of urinary calculi; C61 Malignant neoplasm of prostate; N52.9 Male erectile dysfunction, unspecified; Z68.23 Body mass index [BMI] 23.0-23.9, adult | CPT/HCPCS: 51798; 81002; 87086; 99213 ==

== ENCOUNTER → 2025-05-17 15:35 | Outpatient (CLI) | payer MEDICARE, SELFPAY | PROVIDERS: PCP Family Medicine; Visit Provider Urology | DX: R39.9 Unspecified symptoms and signs involving the genitourinary system (principal) | CPT/HCPCS: 87086 ==

== ENCOUNTER → 2025-09-03 07:55 | Outpatient (CLI) | payer MEDICARE, SELFPAY ==
[2025-09-03 09:26] LABS: Alanine Aminotransferase 30 IU/L (<50); Albumin 4.2 g/dL (3.5-5.0); Albumin Globulin Ratio 1.6 (1.0-2.8); Alkaline Phosphatase 73 U/L (38-126); Blood Urea Nitrogen 18 mg/dL (9-20); Calcium 9.3 mg/dL (8.4-10.2); Carbon Dioxide 26 mmol/L (22-32); Chloride 102 mmol/L (98-107); Cholesterol 201 mg/dL (140-199); Estimated Glomerular Filt Rate > 60 mL/min (>60); Globulin 2.6 g/dL (1.7-4.1); Glucose 98 mg/dL (70-99); HDL Cholesterol 81 mg/dL (40-60); HEMOLYSIS < 15 (0-50); Potassium 4.4 mmol/L (3.4-5.1); Sodium 135 mmol/L (137-145); Total Protein 6.8 g/dL (6.3-8.2); Triglycerides 135 mg/dL (35-150)
[2025-09-03 09:58] LABS: Prostate Specific Antigen 5.23 ng/mL (0.10-4.00)
== END ==
PROVIDERS: PCP Family Medicine; Referring Provider Family Medicine; Visit Provider Urology
DX: C61 Malignant neoplasm of prostate (principal); I10 Essential (primary) hypertension; E78.5 Hyperlipidemia, unspecified
CPT/HCPCS: 36415; 80053; 80061; 84153